=== PATIENT | female | born 1985 | race Caucasian/White ===

== ENCOUNTER → 2020-10-08 00:51 | Outpatient (CLI) | payer OTHER, SELFPAY ==
[2020-10-08 17:24] LABS: SARS-CoV-2 RNA PCR Negative
== END ==
PROVIDERS: PCP Physician Assistant; Visit Provider Surgery Plastic and Reconstructive Surgery
DX: Z01.812 Encounter for preprocedural laboratory examination (principal); Z20.822 Contact with and (suspected) exposure to COVID-19
CPT/HCPCS: C9803; U0003; U0005

== ENCOUNTER 2020-10-11 05:53 | Day surgery (SDC) | payer OTHER, SELFPAY ==
[2020-10-02 09:52] VITALS: BMI 26.9
[2020-10-11] VITALS (11 sets, daily range): BP systolic 105–119; BP diastolic 66–89; PULSE 64–116; RESP 12–18; TEMP 36.4–36.8; O2SAT 94–100; BMI 27.6
[2020-10-11] MEDS: LACTATED RINGERS 1,000 ML 30 ML IV CONT ×2 (06:39→08:25)
--- NOTE | 2020-10-11 06:53 | WPDANESEPPF ---
Anes - Initial Pre Proc Eval Procedure: Operation Date: 10/11/20 07:30 Proposed Procedures p Bilateral Breast Augmentation Mammoplasty - Kenny Luevano MD Date/Time: 10/11/20 06:53 Surgeon: Kenny Luevano MD Pre Op Diagnosis: Micromastia Patient Data Age: 35 Gender: F Height: 1.6 m Weight: 70.7 kg Last Vital Signs Temp 36.8 C 10/11/20 06:19 Pulse 76 10/11/20 06:19 Resp 15 10/11/20 06:19 BP 118/76 10/11/20 06:19 Pulse Ox 100 10/11/20 06:19 Allergies Allergy/AdvReac Type Severity Reaction Status Date / Time Sulfa (Sulfonamide Allergy Intermediate rash and Verified 10/11/20 06:02 Antibiotics) inflammation Home Medications Medication Instructions Recorded Confirmed Type bupropion HCl 300 mg 24 hr tablet, 300 mg PO QAM 07/31/20 10/11/20 History extended release etonogestrel 0.12 mg-ethinyl 1 vag ring VAGINAL ONCE 07/31/20 10/02/20 History estradiol 0.015 mg/24 hr vaginal ring carisoprodol 350 mg tablet 350 mg PO TID PRN #21 tablet 09/25/20 10/02/20 Rx docusate sodium 100 mg capsule 100 mg PO BID #21 cap 09/25/20 10/02/20 Rx ondansetron HCl 4 mg tablet 4 mg PO Q8H #14 tablet 09/25/20 10/02/20 Rx oxycodone-acetaminophen 5 mg-325 1 tablet PO Q6H PRN #15 tablet 09/25/20 10/02/20 Rx mg tablet acetaminophen [Tylenol] 325 mg PO ONCE PRN 10/02/20 10/11/20 History Patient hx anesthesia problems: none Family hx anesthesia problems: none [facility] Past Medical History Medical History (Updated 10/10/20 @ 12:14 by Carlos Wren DO) Depression Surgical History Surgical History History of Social History Social History Smoking status: Never smoker Second hand tobacco smoke exposure: No Alcohol intake: current Alcohol use details: social- 2 night a week Substance use: never Substance use type: does not use Living arrangements: with family Gender identity (if verbalized by the patient): Female Spiritual care concerns: No Anes - Eval Final PreProcedure Day of Procedure 10/11/20 06:53 Patient weight: overweight Heart: regular rate and rhythm Lungs: clear to auscultation and normal air movement Airway: Mallampati scale class II Neurological: alert and oriented Last oral intake: >/= 8 hours ASA classification: II Emergent: no Anesthetic plan: proceed Anesthesia type and monitoring: general LMA and standard monitoring Informed Consent: The patient's anesthetic plan and its attendant risks and benefits were discussed with the patient/family/POA. Questions were solicited and answers provided to the satisfaction of the patient/family/POA.
--- NOTE | 2020-10-11 06:54 | WPDHPUPDATE1 ---
History and Physical Update Update Date/Time: 10/11/20 06:54 History and Physical has been reviewed, including an updated exam of the patient. There are NO changes in the patient's condition. Risks, benefits, and alternatives have been discussed and questions answered. Patient agrees to proceed with procedure.
--- NOTE | 2020-10-11 07:00 | P.OP_ITS ---
Procedure Note - Detailed Date of Procedure 10/11/20 Pre-op Diagnosis Micromastia Post-op Diagnosis same Procedure Performed Bilateral Augmentation Mammaplasty Surgeon Kenny Luevano MD Anesthesia general Findings Bilateral [place] Bueno SoftTouch 445cc Right REF# [id number] SN [id number] Left REF# [id number] SN [id number] Description of Procedure She is here today for bilateral breast augmentation. Previously and again today the risks, benefits, alternatives were discussed in extensive detail. I wanted her to be very realistic about the risks involved as well as expectations. We discussed aftercare and what to monitor for. Made sure answered all of her qu estions to her satisfaction today and consent was obtained. Marked in the preoperative holding area with their verification. The patient was taken to the operating room placed supine on the operating table. Anesthesia was provided by anesthesiology. A surgical time-out was taken. We cleansed the skin and 1% lidocaine and 0.25% Marcaine with epinephrine was used anesthetize as a field block. She was prepped and draped in a standard sterile fashion. Tegaderm nipple Aguayo were placed. A 15 blade used to make an incision along the inframammary fold. Dissection was continued at 45 degree angle until the chest wall as identified. I incised the pectoralis major along its inferior border and completely released the inferior border leaving the medial border intact. I created a subpectoral pocket in the appropriate dimensions based on our preoperative planning for the implant. I then copiously irrigated with saline solution and verified a strict hemostasis. Next the use a triple antibiotic and Betadine containing solution to irrigate the pocket. I washed my gloves with the triple antibiotic and Betadine solution. We washed the implant immediately upon opening it with this solution and only opened it when we needed it. I used implant funnel and no-touch technique. The implant was introduced into the pocket using the funnel. Having verified positioning of the implant this was closed using 2-0 Vicryl followed by 3-0 Monocryl in a running subcuticular 4-0 Monocryl followed by tissue glue. Fluffs, Tom wrap, and surgical bra were placed. Patient was awoke and taken to PACU without difficulty. All instrument sponge counts were correct at the end of the case. Estimated Blood Loss 10 Drains No Packing No Pathology none sent Complications No immediate complications Condition stable Disposition PACU
[2020-10-11] MEDS: ceFAZolin SODIUM 2 GM/20 ML SW SYRINGE IV PUSH (07:16)
[2020-10-11] MEDS: LIDO 1%/EPINEPHRINE 1:100,000 20 ML VIAL 30 ML INFILTRATE (07:34)
[2020-10-11] MEDS: fentaNYL CITRATE INJ (*CRX) 100 MCG/2 ML VIAL 25 MCG IV PUSH (09:05)
--- NOTE | 2020-10-11 09:23 | SUR.PHASEII ---
at beside. Patient drinking sprite and saltines. Tolerating sitting up well.
[2020-10-11] MEDS: oxyCODONE HCL (*CRX) 5 MG TAB IR PO (09:41)
--- NOTE | 2020-10-11 10:09 | SUR.PHASEII ---
5MG OXYCOCODONE PO AT 0942- PT STATES PAIN IN ARMS AT A 6- 1009- PATIENT RESTING COMFORTABLY IN BED(HEAD ELEVATED) - ROOM AIR- NO COMPLAINTS AT THIS TIME
--- NOTE | 2020-10-11 10:12 | WPDANESPN ---
Anes - Prog Note Post-Op Date/Time: 10/11/20 10:12 Cardiovascular status: normal Respiratory status: normal Airway patency: baseline Mental status: baseline Post-Op hydration status: normal Vital Signs: Last Vital Signs Temp 36.4 C 10/11/20 08:16 Pulse 76 10/11/20 09:42 Resp 12 10/11/20 09:42 BP 110/71 10/11/20 09:42 Pulse Ox 97 10/11/20 09:42 Pain Score (VAS): 1 I/O: Intake & Output 10/10/20 10/11/20 10/11/20 23:59 07:59 15:59 Intake Total 0 Balance 0 Post-procedural complaints: none Patient Feedback: Patient satisfied with anesthetic care. Other Findings: Patient vital signs back to baseline. Patient denies nausea and vomiting. Patient's pain under control. Patient OK for discharge.
== END 2020-10-11 10:59 | disposition home or self-care (01) ==
PROVIDERS: PCP Physician Assistant; Visit Provider Surgery Plastic and Reconstructive Surgery
PROC: (CPT 19325; principal; 2020-10-11 07:30)
DX: N64.82 Hypoplasia of breast (principal)
CPT/HCPCS: 19325

== ENCOUNTER 2024-09-14 16:05 | Emergency (ER) | payer OTHER, SELFPAY ==
--- NOTE | ~2024-09-14 | XR_ITS ---
HISTORY: injury, laceration COMPARISON: None TECHNIQUE: 2 views of the third digit were performed. FINDINGS: No acute or subacute fracture. Joint spaces are preserved and alignment is maintained. Soft tissues are unremarkable without radiopaque foreign body or significant calcification. Age-appropriate mineralization. IMPRESSION: No acute fracture or dislocation. Reviewed, dictated and finalized at location A.
--- OUTSIDE RECORDS SUMMARY | 2024-09-14 16:08 | XMS_ITS | Data Portability ---
Author Organization [facility] UPMCSanketpraveena Austin Address [address] [place] [address] Care Team Providers Care Baker Biscuit Name Role Phone LACI LAN Primary Care Provider [phone] Assessment Encounter Date Assessment Date Assessment LastModified by Organization Details LastModified Time 02/14/2024 02/14/2024 pap smear UTD eye exam overdue dental UTD every 6 months. no colon cancer or breast cancer hx. +breast implants 2020. Not available 02/14/2024 11:31:23 Plan of Treatment Reminders Order Date Submit Date Provider Last Modified By Organization Details Last Modified Time Details Appointments ANY 15 2024 08:45A M SIDNEY Schaffer Not available Not available Not available Lab insulin, serum 2023 024 [facility], [address] [place] [address] [address], [address], 02/27/2024 19:45:48 TSH + free T4, serum 2023 024 [facility], [address] [facility], [place], [address], 02/27/2024 19:45:43 thyropero xidase Ab, serum 2023 024 [facility], 102 [facility], [facility], [place], [address], 02/27/2024 19:45:50 T3, free, serum or plasma 2023 024 [facility], 102 [facility], [facility], [place], [address], 02/27/2024 19:45:51 lipid panel, serum 2023 024 [facility], [address] [facility], [facility], [place], [address], 02/27/2024 19:45:42 CMP, serum or plasma 2023 024 [facility], [facility], [facility], [place], [address], 02/27/2024 19:45:44 CBC w/ auto diff 2023 024 [facility], [facility], [facility], [place], [address], 02/27/2024 19:45:49 vitamin B12 + folate, serum or blood 2023 024 [facility], [address] [place] [address], [facility], [place], [address], 02/27/2024 19:45:46 cortisol, am, serum 2023 024 [facility], [facility], [facility], [place], [address], 02/27/2024 19:45:41 iron + TIBC + ferritin, serum 2023 024 [facility], [facility], [facility], [place], [address], 02/27/2024 19:45:52 testoster one, total, serum 2023 024 [facility], [facility], [facility], [place], [address], 02/27/2024 19:45:53 HbA1c (hemoglob in A1c), blood 2023 024 [facility], [address] [facility], [place], [address], 02/27/2024 19:45:47 Referral None recorded. Procedures None recorded. Surgeries None recorded. Imaging None recorded. Medication Orders atomoxeti ne 60 mg capsule 2024 025 [id number], [address], [place], [place], [id number], 09/11/2024 10:51:02 atomoxeti ne 40 mg capsule 2023 025 [id number], [address], [place], [place], [id number], 09/11/2024 10:51:26 Patient TargetsNo targets recorded. Patient Instructions Encounter Date Encounter Id Patient Instructions Last Modified By Organization Details Last Modified Time 02/14/2024 [id number] A healthy lifestyle: care instructions Not available 02/14/2024 11:36:20 06/19/2024 [id number] A healthy lifestyle: care instructions Not available 06/19/2024 10:30:16 Reason for Referral None Reported. Results Created Date Observation Date Name Description Value Unit Range Abnormal Flag Note LastModifiedBy Organization Detail LastModifiedTime 02/17/2002/18/2024 CORTI GONZALES - AM cortisol - AM 11.9 ug/dL 6.2-19 .4 Not Available [facility] [address] [place] [address], [address], 02/27/2024 19:45:41 02/17/2002/18/2024 LIPID PANEL W/ CHOL/ HDL RATIO cholesterol, total 197 mg/dL 100-19 9 Not Available [facility] [address] [place] [address], [address], 02/27/2024 19:45:42 02/17/2002/18/2024 LIPID PANEL W/ CHOL/ HDL RATIO triglyceride s 66 mg/dL 0-149 Not Available [facility] [address] [place], [address], 02/27/2024 19:45:42 02/17/20 24 02/18/2024 LIPID PANEL W/ CHOL/ HDL RATIO HDL cholesterol 66 mg/dL >39 Not Available [facility] [address] [place], [address], 02/27/2024 19:45:42 02/17/2002/18/2024 LIPID PANEL W/ CHOL/ HDL RATIO VLDL cholesterol sussy 12 mg/dL 5-40 Not Available [facility] [address] [place] [address], [address], 02/27/2024 19:45:42 02/17/2002/18/2024 LIPID PANEL W/ CHOL/ HDL RATIO LDL chol calc ([facility]) 119 mg/dL 0-99 above high normal Not Available [facility] [address] [place], [address], 02/27/2024 19:45:42 02/17/20 24 02/18/2024 LIPID PANEL W/ CHOL/ HDL RATIO T. chol/HDL ratio 3.0 ratio 0.0-4. 4 T. Chol/ HDL Ratio Men Women 1/2 Avg.R isk 3.4 3.3 Avg.R isk 5.0 4.4 2X Avg.R isk 9.6 7.1 3X Avg.R isk 23.4 11.0 Not Available [facility] [address] [place] [address], [address], 02/27/2024 19:45:42 02/17/2002/18/2024 TSH+F REE T4 TSH 1.090 uIU/m L 0.450- 4.500 Not Available [facility] [address] [place], [address], 02/27/2024 19:45:43 02/17/20 24 02/18/2024 TSH+F REE T4 T4,free(dire ct) 1.06 NG/dL 0.82-1 .77 Not Available [facility] [address] [place], [address], 02/27/2024 19:45:43 02/17/20 24 02/18/2024 COMP. METAB OLIC PANEL (14) glucose 77 mg/dL 70-99 Not Available [facility] [address] [place], [address], 02/27/2024 19:45:44 02/17/20 24 02/18/2024 COMP. METAB OLIC PANEL (14) BUN 16 mg/dL 6-20 Not Available [facility] [address] [place], [address], 02/27/2024 19:45:44 02/17/20 24 02/18/2024 COMP. METAB OLIC PANEL (14) creatinine 0.85 mg/dL 0.57-1 .00 Not Available [facility] [address] [place], [address], 02/27/2024 19:45:44 02/17/20 24 02/18/2024 COMP. METAB OLIC PANEL (14) eGFR 91 mL/mi n/1.7 3 >59 Not Available [facility] [address] [place], [address], 02/27/2024 19:45:44 02/17/20 24 02/18/2024 COMP. METAB OLIC PANEL (14) BUN/creatini ne ratio 19 9-23 Not Available [facility] [address] [place], [address], 02/27/2024 19:45:44 02/17/20 24 02/18/2024 COMP. METAB OLIC PANEL (14) sodium 141 mmol/ L 134-14 4 Not Available [facility] [address] [place], [address], 02/27/2024 19:45:44 02/17/20 24 02/18/2024 COMP. METAB OLIC PANEL (14) potassium 4.3 mmol/ L 3.5-5. 2 Not Available [facility] [address] [place], [address], 02/27/2024 19:45:44 02/17/2002/18/2024 COMP. METAB OLIC PANEL (14) chloride 103 mmol/ L 96-106 Not Available [facility] [address] [place], [address], 02/27/2024 19:45:44 02/17/2002/18/2024 COMP. METAB OLIC PANEL (14) carbon dioxide, total 23 mmol/ L 20-29 Not Available [facility] [address] [place], [address], 02/27/2024 19:45:44 02/17/20 24 02/18/2024 COMP. METAB OLIC PANEL (14) calcium 9.6 mg/dL 8.7-10 .2 Not Available [facility] [address] [place], [address], 02/27/2024 19:45:44 02/17/20 24 02/18/2024 COMP. METAB OLIC PANEL (14) protein, total 7.2 g/dL 6.0-8. 5 Not Available [facility] [address] [place], [address], 02/27/2024 19:45:44 02/17/2002/18/2024 COMP. METAB OLIC PANEL (14) albumin 4.7 g/dL 3.9-4. 9 Not Available [facility] [address] [place], [address], 02/27/2024 19:45:44 02/17/20 24 02/18/2024 COMP. METAB OLIC PANEL (14) globulin, total 2.5 g/dL 1.5-4. 5 Not Available [facility] [address] [place], [address], 02/27/2024 19:45:44 02/17/20 24 02/18/2024 COMP. METAB OLIC PANEL (14) bilirubin, total 0.4 mg/dL 0.0-1. 2 Not Available [facility] [address] [place], [address], 02/27/2024 19:45:44 02/17/20 24 02/18/2024 COMP. METAB OLIC PANEL (14) alkaline phosphatase 81 IU/L 44-121 Not Available [facility] [address] [place], [address], 02/27/2024 19:45:44 02/17/20 24 02/18/2024 COMP. METAB OLIC PANEL (14) AST (SGOT) 22 IU/L 0-40 Not Available [facility] [address] [place], [address], 02/27/2024 19:45:44 02/17/20 24 02/18/2024 COMP. METAB OLIC PANEL (14) ALT (SGPT) 17 IU/L 0-32 Not Available [facility] [address] [place], [address], 02/27/2024 19:45:44 02/17/20 24 02/18/2024 VITAM IN B12 AND FOLAT E vitamin B12 837 pg/mL 232-12 45 Not Available [facility] [address] [place], [address], 02/27/2024 19:45:45 02/17/20 24 02/18/2024 VITAM IN B12 AND FOLAT E folate (folic acid), serum 10.1 NG/mL >3.0 A serum folat e carlos ntrat ion of less than 3.1 ng/mL is consi dered to repre sent clini sussy defic iency . Not Available [facility] [address] [place], [address], 02/27/2024 19:45:45 02/17/2002/18/2024 HEMOG LOBIN A1C hemoglobin A1C 5.0 % 4.8-5. 6 Predi abete s: 5.7 - 6.4 Diabe marlin: >6.4 Glyce trey contr ol for adult s with diabe marlin: <7.0 Not Available [facility] [address] [place], [address], 02/27/2024 19:45:47 02/17/2002/18/2024 INSUL IN insulin 7.2 uIU/m L 2.6-24 .9 Not Available [facility] [address] [place], [address], 02/27/2024 19:45:48 02/17/2002/18/2024 CBC WITH DIFFE RENTI AL/PL ATELE T WBC 7.6 x10e3 /uL 3.4-10 .8 Not Available [facility] [address] [place], [address], 02/27/2024 19:45:49 02/17/2002/18/2024 CBC WITH DIFFE RENTI AL/PL ATELE T RBC 4.36 x10e6 /uL 3.77-5 .28 Not Available [facility] [address] [place], [address], 02/27/2024 19:45:49 02/17/2002/18/2024 CBC WITH DIFFE RENTI AL/PL ATELE T hemoglobin 14.0 g/dL 11.1-1 5.9 Not Available [facility] [address] [place], [address], 02/27/2024 19:45:49 02/17/2002/18/2024 CBC WITH DIFFE RENTI AL/PL ATELE T hematocrit 42.3 % 34.0-4 6.6 Not Available [facility] [address] [place], [address], 02/27/2024 19:45:49 02/17/2002/18/2024 CBC WITH DIFFE RENTI AL/PL ATELE T MCV 97 fL 79-97 Not Available [facility] [address] [place], [address], 02/27/2024 19:45:49 02/17/2002/18/2024 CBC WITH DIFFE RENTI AL/PL ATELE T MCH 32.1 pg 26.6-3 3.0 Not Available [facility] [address] [place], [address], 02/27/2024 19:45:49 02/17/2002/18/2024 CBC WITH DIFFE RENTI AL/PL ATELE T MCHC 33.1 g/dL 31.5-3 5.7 Not Available [facility] [address] [place], [address], 02/27/2024 19:45:49 02/17/2002/18/2024 CBC WITH DIFFE RENTI AL/PL ATELE T RDW 11.7 % 11.7-1 5.4 Not Available [facility] [address] [place], [address], 02/27/2024 19:45:49 02/17/2002/18/2024 CBC WITH DIFFE RENTI AL/PL ATELE T platelets 353 x10e3 /uL 150-45 0 Not Available [facility] [address] [place], [address], 02/27/2024 19:45:49 02/17/2002/18/2024 CBC WITH DIFFE RENTI AL/PL ATELE T neutrophils 69 % notest ab. Not Available [facility] [address] [place], [address], 02/27/2024 19:45:49 02/17/2002/18/2024 CBC WITH DIFFE RENTI AL/PL ATELE T lymphs 23 % notest ab. Not Available [facility] [address] [place], [address], 02/27/2024 19:45:49 02/17/2002/18/2024 CBC WITH DIFFE RENTI AL/PL ATELE T monocytes 7 % notest ab. Not Available [facility] [address] [place], [address], 02/27/2024 19:45:49 02/17/2002/18/2024 CBC WITH DIFFE RENTI AL/PL ATELE T eos 0 % notest ab. Not Available [facility] [address] [place], [address], 02/27/2024 19:45:49 02/17/2002/18/2024 CBC WITH DIFFE RENTI AL/PL ATELE T basos 1 % notest ab. Not Available [facility] [address] [place], [address], 02/27/2024 19:45:49 02/17/2002/18/2024 CBC WITH DIFFE RENTI AL/PL ATELE T neutrophils (absolute) 5.3 x10e3 /uL 1.4-7. 0 Not Available [facility] [address] [place], [address], 02/27/2024 19:45:49 02/17/2002/18/2024 CBC WITH DIFFE RENTI AL/PL ATELE T lymphs (absolute) 1.7 x10e3 /uL 0.7-3. 1 Not Available [facility] [address] [place], [address], 02/27/2024 19:45:49 02/17/2002/18/2024 CBC WITH DIFFE RENTI AL/PL ATELE T monocytes(ab solute) 0.5 x10e3 /uL 0.1-0. 9 Not Available [facility] [address] [place], [address], 02/27/2024 19:45:49 02/17/2002/18/2024 CBC WITH DIFFE RENTI AL/PL ATELE T eos (absolute) 0.0 x10e3 /uL 0.0-0. 4 Not Available [facility] [address] [place], [address], 02/27/2024 19:45:49 02/17/2002/18/2024 CBC WITH DIFFE RENTI AL/PL ATELE T baso (absolute) 0.0 x10e3 /uL 0.0-0. 2 Not Available [facility] [address] [place], [address], 02/27/2024 19:45:49 02/17/20 24 02/18/2024 CBC WITH DIFFE RENTI AL/PL ATELE T immature granulocytes 0 % notest ab. Not Available [facility] [address] [place], [address], 02/27/2024 19:45:49 02/17/2002/18/2024 CBC WITH DIFFE RENTI AL/PL ATELE T immature grans (abs) 0.0 x10e3 /uL 0.0-0. 1 Not Available [facility] [address] [place], [address], 02/27/2024 19:45:49 02/17/2002/18/2024 THYRO ID ANTIB ODIES thyroid peroxidase (tpo) Ab 10 IU/mL 0-34 Not Available [facility] [address] [place], [address], 02/27/2024 19:45:50 02/17/2002/18/2024 THYRO ID ANTIB ODIES thyroglobuli n antibody <1.0 IU/mL 0.0-0. 9 Thyro globu nathaniel Antib mamta measu red by Nehemiah eden Coult er Metho dolog y It shoul d be noted that the prese nce of thyro globu nathaniel antib odies may not be patho genic nor diagn ostic , espec ially at very low level s. The assay jada actur er has found that four perce nt of indiv idual s witho ut evide nce of thyro id disea se or autoi mmuni ty will have posit ryan TgAb level s up to 4 IU/mL . Not Available [facility] [address] [place], [address], 02/27/2024 19:45:50 02/17/2002/18/2024 TRIIO DOTHY CAMILA E (T3), FREE triiodothyro nine (T3), free 2.9 pg/mL 2.0-4. 4 Not Available [facility] [address] [place], [address], 02/27/2024 19:45:51 02/17/2002/18/2024 FE+TI BC+FE R iron bind.cap.(TI BC) 309 ug/dL 250-45 0 Not Available [facility] [address] [place], [address], 02/27/2024 19:45:52 02/17/2002/18/2024 FE+TI BC+FE R UIBC 214 ug/dL 131-42 5 Not Available [facility] [address] [place], [address], 02/27/2024 19:45:52 02/17/2002/18/2024 FE+TI BC+FE R iron 95 ug/dL 27-159 Not Available [facility] [address] [facility], [place], [address], 02/27/2024 19:45:52 02/17/20 24 02/18/2024 FE+TI BC+FE R iron saturation 31 % 15-55 Not Available [facility] [address] [place], [address], 02/27/2024 19:45:52 02/17/20 24 02/18/2024 FE+TI BC+FE R ferritin 112 NG/mL 15-150 Not Available [facility] [address], [place], [address], 02/27/2024 19:45:52 02/17/20 24 02/27/2024 TESTO STERO NE, TOTAL , LC/MS testosterone , total, lc/MS 30 NG/dL This test was [place] and its perfo [facility]manc e [place] [facility] deter mined by [facility]. It has not been clear ed or appro neli by the Food and Drug Admin istra tion. Refer ence Range : Adult Femal es Preme nopau tino 10 - 55 Postm enopa usal 7 - 40 Not Available [facility] [address] [facility], [place], [address], 02/27/2024 19:45:53 06/11/19 25 06/11/2024 Lacta te [Mole s/vol ume] in Serum or Plasm a lactate [moles/volum e] in serum or plasma 0.8 text: 0.4 - 2.0 mmol/L LACTI C ACID VENOU S 0.8 0.4 - 2.0 MMOL/ L 06/11 9:56 PM [employer] [employer] Not Available Not Available 06/14/2024 23:45:24 06/11/19 25 06/11/2024 Urina lysis dipst ick W Refle x Micro scopi c panel - Urine collection method - specimen URINE CLEAN CATCH SPECI MEN TYPE URINE CLEAN CATCH 06/11 4:44 PM [employer] [facility] Not Available Not Available 06/14/2024 23:45:24 06/11/19 25 06/11/2024 Urina lysis dipst ick W Refle x Micro scopi c panel - Urine color of urine LIGHT YELLOW COLOR (U) LIGHT YELLO W 06/11 5:36 PM [employer] [facility] Not Available Not Available 06/14/2024 23:45:24 06/11/19 25 06/11/2024 Urina lysis dipst ick W Refle x Micro scopi c panel - Urine clarity of urine TURBID TRANS PAREN CY TURBI D 06/11 5:36 PM [employer] [facility] Not Available Not Available 06/14/2024 23:45:24 06/11/19 25 06/11/2024 Urina lysis dipst ick W Refle x Micro scopi c panel - Urine specific gravity of urine 1.012 low: 1.001h igh: 1.03 SPECI FIC GRAVI TY (U) 1.012 1.001 - 1.030 06/11 5:36 PM [employer] [facility] Not Available Not Available 06/14/2024 23:45:24 06/11/19 25 06/11/2024 Urina lysis dipst ick W Refle x Micro scopi c panel - Urine pH of urine 6.5 low: 5high: 9 U PH 6.5 5.0 - 9.0 06/11 5:36 PM [employer] [facility] Not Available Not Available 06/14/2024 23:45:24 06/11/19 25 06/11/2024 Urina lysis dipst ick W Refle x Micro scopi c panel - Urine leukocytes [#/volume] in urine by test strip 25 text: negati ve abnormal LEUKO CYTES (U) 25 (A) NEGAT RYAN 06/11 5:36 PM [employer] [facility] Not Available Not Available 06/14/2024 23:45:24 06/11/19 25 06/11/2024 Urina lysis dipst ick W Refle x Micro scopi c panel - Urine nitrite [presence] in urine 2+ text: negati ve abnormal NITRI MARLIN 2+ (A) NEGAT RYAN 06/11 5:36 PM [employer] [facility] Not Available Not Available 06/14/2024 23:45:24 06/11/19 25 06/11/2024 Urina lysis dipst ick W Refle x Micro scopi c panel - Urine protein [mass/volume ] in urine by test strip 10 text: <30 mg/dL PROTE IN RANDO M (U) 10 <30 MG/DL 06/11 5:36 PM [employer] [facility] Not Available Not Available 06/14/2024 23:45:24 06/11/19 25 06/11/2024 Urina lysis dipst ick W Refle x Micro scopi c panel - Urine glucose [mass/volume ] in urine NORMAL text: normal mg/dL GLUCO SE (U) CARLITOS L CARLITOS L MG/DL 06/11 5:36 PM [employer] [facility] Not Available Not Available 06/14/2024 23:45:24 06/11/19 25 06/11/2024 Urina lysis dipst ick W Refle x Micro scopi c panel - Urine ketones [mass/volume ] in urine by test strip 20 text: negati ve mg/dL abnormal KETON ES MG/DL (U) 20 (A) NEGAT RYAN MG/DL 06/11 5:36 PM [employer] [facility] Not Available Not Available 06/14/2024 23:45:24 06/11/19 25 06/11/2024 Urina lysis dipst ick W Refle x Micro scopi c panel - Urine urobilinogen [units/volum e] in urine by test strip NORMAL text: normal mg/dL UROBI LINOG EN CARLITOS L CARLITOS L MG/DL 06/11 5:[address] [facility] Not Available Not Available 06/14/2024 23:45:24 06/11/19 25 06/11/2024 Urina lysis dipst ick W Refle x Micro scopi c panel - Urine bilirubin.to magdy [mass/volume ] in urine NEGATI VE text: negati ve mg/dL BILIR UBIN (U) NEGAT RYAN NEGAT RYAN MG/DL 06/11 5:[address] [facility] Not Available Not Available 06/14/2024 23:45:24 06/11/19 25 06/11/2024 Urina lysis dipst ick W Refle x Micro scopi c panel - Urine erythrocytes [#/volume] in urine by automated test strip TRACE text: negati ve abnormal BLOOD (U) TRACE (A) NEGAT RYAN 06/11 5:[address] [facility] Not Available Not Available 06/14/2024 23:45:24 06/11/19 25 06/11/2024 Urina lysis dipst ick W Refle x Micro scopi c panel - Urine mucus [#/area] in urine sediment by microscopy low power field RARE text: /lpf MUCUS RARE /LPF 06/11 5:[address] [facility] Not Available Not Available 06/14/2024 23:45:24 06/11/19 25 06/11/2024 Urina lysis dipst ick W Refle x Micro scopi c panel - Urine leukocytes [#/area] in urine sediment by microscopy high power field 10 text: <6 /hpf high WBC/H PF 10 (H) <6 /HPF 06/11 5:[address] [facility] Not Available Not Available 06/14/2024 23:45:24 06/11/19 25 06/11/2024 Urina lysis dipst ick W Refle x Micro scopi c panel - Urine erythrocytes [#/area] in urine sediment by microscopy high power field 1 text: <6 /hpf RBC/H PF 1 <6 /HPF 02/16 /2025 5:36 PM [facility] Not Available Not Available 06/14/2024 23:45:24 06/11/19 25 06/11/2024 Urina lysis dipst ick W Refle x Micro scopi c panel - Urine bacteria [#/area] in urine sediment by microscopy high power field RARE text: none /hpf abnormal BACTE ROSEMARY (U) RARE (A) NONE /HPF 06/11 5:36 PM [employer] [facility] Not Available Not Available 06/14/2024 23:45:24 06/11/19 25 06/11/2024 Urina lysis dipst ick W Refle x Micro scopi c panel - Urine epithelial cells.squamo us [#/area] in urine sediment by microscopy high power field FEW text: /hpf SQUAM OUS EPITH ELIAL S FEW /HPF 06/11 5:36 PM [facility] Not Available Not Available 06/14/2024 23:45:24 06/11/19 25 06/11/2024 Urina lysis dipst ick W Refle x Micro scopi c panel - Urine interpretati on and review of laboratory results Abnorm al Not Available Not Available 23:45:24 06/11/19 25 06/11/2024 Proth rombi n time (PT) prothrombin time (PT) 14.2 text: 10.2 - 12.9 sec high PROTI ME 14.2 (H) 10.2 - 12.9 SEC 06/11 5:53 PM [facility] Not Available Not Available 06/14/2024 23:45:24 06/11/19 25 06/11/2024 Proth rombi n time (PT) INR in platelet poor plasma by coagulation assay 1.2 INR 1.2 06/11 5:53 PM [facility] Not Available Not Available 06/14/2024 23:45:24 06/11/19 25 06/11/2024 Proth rombi n time (PT) interpretati on and review of laboratory results Abnorm al Not Available Not Available 23:45:24 06/11/19 25 06/11/2024 Fibri n D-dim er FEU [Mass /volu me] in Plate let poor plasm a fibrin D-dimer feu [mass/volume ] in platelet poor plasma 772 NG{fe u}/mL low: 0NG{fe u}/mLh igh: 500NG{ feu}/m L critical high D-DIM ER 772 (HH) 0 - 500 ng{FE U}/mL 06/11 5:53 PM [employer] [facility] Not Available Not Available 06/14/2024 23:45:24 06/11/19 25 06/11/2024 Fibri n D-dim er FEU [Mass /volu me] in Plate let poor plasm a interpretati on and review of laboratory results Abnorm al Not Available Not Available 23:45:24 06/11/19 25 06/11/2024 Compr ehens ryan metab olic 1999 panel - Serum or Plasm a glucose [mass/volume ] in serum or plasma 89 text: 70 - 99 mg/dL GLUCO SE 89 70 - 99 MG/DL 06/11 5:11 PM [facility] Not Available Not Available 06/14/2024 23:45:24 06/11/19 25 06/11/2024 Compr ehens ryan metab olic 1999 panel - Serum or Plasm a urea nitrogen [mass/volume ] in serum or plasma 13 text: 7 - 18 mg/dL BUN 13 7 - 18 MG/DL 06/11 5:11 PM [facility] [employer] [facility] Not Available Not Available 06/14/2024 23:45:24 06/11/19 25 06/11/2024 Compr ehens ryan metab olic 2000 panel - Serum or Plasm a creatinine [mass/volume ] in serum or plasma 0.96 text: 0.55 - 1.02 mg/dL CREAT ININE S/P/B 0.96 0.55 - 1.02 MG/DL 06/11 5:11 PM [facility] Not Available Not Available 06/14/2024 23:45:24 06/11/19 25 06/11/2024 Compr ehens ryan metab olic 2000 panel - Serum or Plasm a sodium [moles/volum e] in serum or plasma 134 text: 136 - 145 mmol/L low SODIU M S/P/B 134 (L) 136 - 145 MMOL/ L 06/11 5:11 PM [facility] Not Available Not Available 06/14/2024 23:45:24 06/11/19 25 06/11/2024 Compr ehens ryan metab olic 2000 panel - Serum or Plasm a potassium [moles/volum e] in serum or plasma 3.5 text: 3.5 - 5.1 mmol/L POTAS SIUM S/P/B 3.5 3.5 - 5.1 MMOL/ L 06/11 5:11 PM [facility] Not Available Not Available 06/14/2024 23:45:24 06/11/19 25 06/11/2024 Compr ehens ryan metab olic 2000 panel - Serum or Plasm a chloride [moles/volum e] in serum or plasma 101 text: 97 - 115 mmol/L CHLOR CARL S/P/B 101 97 - 115 MMOL/ L 06/11 5:11 PM [place] [facility] Not Available Not Available 06/14/2024 23:45:24 06/11/19 25 06/11/2024 Compr ehens ryan metab olic 2000 panel - Serum or Plasm a carbon dioxide, total [moles/volum e] in serum or plasma 28.8 text: 21 - 32 mmol/L CO2 28.8 21 - 32 MMOL/ L 06/11 5:11 PM [facility] Not Available Not Available 06/14/2024 23:45:24 06/11/19 25 06/11/2024 Compr ehens ryan metab olic 2000 panel - Serum or Plasm a calcium [mass/volume ] in serum or plasma 9.7 text: 8.5 - 10.1 mg/dL CALCI UM S/P/B 9.7 8.5 - 10.1 MG/DL 06/11 5:[address] [facility] Not Available Not Available 06/14/2024 23:45:24 06/11/19 25 06/11/2024 Compr ehens ryan metab olic 1999 panel - Serum or Plasm a bilirubin.to magdy [mass/volume ] in serum or plasma 0.7 text: 0.2 - 1.2 mg/dL BILIR UBIN TOTAL S/P/B 0.7 0.2 - 1.2 MG/DL 06/11 5:[address] [facility] Not Available Not Available 06/14/2024 23:45:24 06/11/19 25 06/11/2024 Compr ehens ryan metab olic 1999 panel - Serum or Plasm a protein [mass/volume ] in serum or plasma 8.1 text: 6.4 - 8.2 g/dL TOTAL PROTE IN S/P/B 8.1 6.4 - 8.2 G/DL 06/11 5:[address] [facility] Not Available Not Available 06/14/2024 23:45:24 06/11/19 25 06/11/2024 Compr ehens ryan metab olic 2000 panel - Serum or Plasm a albumin [mass/volume ] in serum or plasma 4 text: 3.4 - 5.0 g/dL ALBUM IN S/P/B 4.0 3.4 - 5.0 G/DL 06/11 5:11 PM [facility] [employer] [facility] Not Available Not Available 06/14/2024 23:45:24 06/11/19 25 06/11/2024 Compr ehens ryan metab olic 2000 panel - Serum or Plasm a aspartate aminotransfe rase [enzymatic activity/vol ume] in serum or plasma 14 U/L low: 15U/Lh igh: 37U/L low AST 14 (L) 15 - 37 U/L 06/11 5:11 PM [facility] Not Available Not Available 06/14/2024 23:45:24 06/11/19 25 06/11/2024 Compr ehens ryan metab olic 1999 panel - Serum or Plasm a alanine aminotransfe rase [enzymatic activity/vol ume] in serum or plasma 20 U/L low: 14U/Lh igh: 55U/L ALT 20 14 - 55 U/L 06/11 5:11 PM [facility] Not Available Not Available 06/14/2024 23:45:24 06/11/19 25 06/11/2024 Compr ehens ryan metab olic 1999 panel - Serum or Plasm a alkaline phosphatase [enzymatic activity/vol ume] in serum or plasma 90 U/L low: 50U/Lh igh: 136U/L ALKAL INE PHOSP HATAS E S/P/B 90 50 - 136 U/L 06/11 5:11 PM [facility] Not Available Not Available 06/14/2024 23:45:24 06/11/19 25 06/11/2024 Compr ehens ryan metab olic 2000 panel - Serum or Plasm a anion gap in serum or plasma 4.2 text: 2 - 10 mmol/L ANION GAP 4.2 2 - 10 MMOL/ L 06/11 5:11 PM [facility] Not Available Not Available 06/14/2024 23:45:24 06/11/19 25 06/11/2024 Compr ehens ryan metab olic 2000 panel - Serum or Plasm a urea nitrogen/cre atinine [mass ratio] in serum or plasma 13.6 low: 6high: 26 BUN CREAT ININE RATIO 13.6 6 - 26 06/11 5:11 PM [facility] Not Available Not Available 06/14/2024 23:45:24 06/11/19 25 06/11/2024 Compr ehens ryan metab olic 2000 panel - Serum or Plasm a albumin/glob ulin [mass ratio] in serum or plasma 1 text: 1.0 - 2.0 ratio A/G RATIO 1.0 1.0 - 2.0 RATIO 06/11 5:11 PM [facility] [facility] Not Available Not Available 06/14/2024 23:45:24 06/11/19 25 06/11/2024 Compr ehens ryan metab olic 2000 panel - Serum or Plasm a glomerular filtration rate/1.73 sq M.predicted [volume rate/area] in serum, plasma or blood by creatinine-b ased formula (CKD-epi 2020) 79 text: >90 mL/min /1.73 M2 low GFR ESTIM ATE 79 (L) >90 ML/CO N/1.7 3 M2 06/11 5:11 PM [facility] Not Available Not Available 06/14/2024 23:45:24 06/11/19 25 06/11/2024 Compr ehens ryan metab olic 2000 panel - Serum or Plasm a interpretati on and review of laboratory results Abnorm al Not Available Not Available 23:45:24 06/11/19 25 06/11/2024 CBC W Auto Diffe renti al panel - Blood leukocytes [#/volume] in blood by automated count 14.01 text: 4.5 - 11.0 x10'3/ uL high WBC 14.01 (H) 4.5 - 11.0 x10'3 /uL 06/11 5:19 PM [facility] Not Available Not Available 06/14/2024 23:45:24 06/11/19 25 06/11/2024 CBC W Auto Diffe renti al panel - Blood erythrocytes [#/volume] in blood by automated count 4.42 text: 4.20 - 5.40 x10'6/ uL RBC 4.42 4.20 - 5.40 x10'6 /uL 06/11 5:19 PM [facility] [facility] Not Available Not Available 06/14/2024 23:45:24 06/11/19 25 06/11/2024 CBC W Auto Diffe renti al panel - Blood hemoglobin [mass/volume ] in blood 13.7 text: 12.0 - 16.0 g/dL HGB 13.7 12.0 - 16.0 G/DL 06/11 5:19 PM [facility] [facility] Not Available Not Available 06/14/2024 23:45:24 06/11/19 25 06/11/2024 CBC W Auto Diffe renti al panel - Blood hematocrit [volume fraction] of blood 42 % low: 38%hig h: 48% HCT 42.0 38.0 - 48.0 % 06/11 5:19 PM [facility] [employer] Not Available Not Available 06/14/2024 23:45:24 06/11/19 25 06/11/2024 CBC W Auto Diffe renti al panel - Blood MCV [entitic volume] 95 text: 81.0 - 99.0 fL MCV 95.0 81.0 - 99.0 FL 06/11 5:19 PM [facility] [employer] Not Available Not Available 06/14/2024 23:45:24 06/11/19 25 06/11/2024 CBC W Auto Diffe renti al panel - Blood MCH [entitic mass] 31 pg low: 27pghi gh: 31pg MCH 31.0 27.0 - 31.0 PG 06/11 5:19 PM [facility] [employer] Not Available Not Available 06/14/2024 23:45:24 06/11/19 25 06/11/2024 CBC W Auto Diffe renti al panel - Blood MCHC [mass/volume ] 32.6 text: 32.0 - 36.0 g/dL MCHC 32.6 32.0 - 36.0 G/DL 06/11 5:19 PM [facility] Not Available Not Available 06/14/2024 23:45:24 06/11/19 25 06/11/2024 CBC W Auto Diffe renti al panel - Blood erythrocyte distribution width [entitic volume] by automated count 12.3 % low: 11.5%h igh: 14.5% RDW 12.3 11.5 - 14.5 % 06/11 5:19 PM [facility] Not Available Not Available 06/14/2024 23:45:24 06/11/19 25 06/11/2024 CBC W Auto Diffe renti al panel - Blood platelets [#/volume] in blood 282 text: 130 - 400 x10'3/ uL PLT 282 130 - 400 x10'3 /uL 06/11 5:19 PM [facility] Not Available Not Available 06/14/2024 23:45:24 06/11/19 25 06/11/2024 CBC W Auto Diffe renti al panel - Blood platelet mean volume [entitic volume] in blood 9.5 text: 9.3 - 12.2 fL MPV 9.5 9.3 - 12.2 FL 06/11 5:19 PM [facility] Not Available Not Available 06/14/2024 23:45:24 06/11/19 25 06/11/2024 CBC W Auto Diffe renti al panel - Blood differential cell count method - blood AUTOMA JESSICA DIFFER ENTIAL DIFFE RENTI AL TYPE AUTOM ATED DIFFE RENTI AL 06/11 5:19 PM [facility] Not Available Not Available 06/14/2024 23:45:24 06/11/19 25 06/11/2024 CBC W Auto Diffe renti al panel - Blood neutrophils/ 100 leukocytes in blood by automated count 78.6 % NEUTR OPHIL S % 78.6 % 06/11 5:19 PM [facility] Not Available Not Available 06/14/2024 23:45:24 06/11/19 25 06/11/2024 CBC W Auto Diffe renti al panel - Blood lymphocytes/ 100 leukocytes in blood by automated count 10.6 % LYMPH OCYTE S % 10.6 % 06/11 5:19 PM [facility] Not Available Not Available 06/14/2024 23:45:24 02/16/20 25 06/11/2024 CBC W Auto Diffe renti al panel - Blood monocytes/10 0 leukocytes in blood by automated count 10.1 % MONOC YTES % 10.1 % 06/11 5:19 PM [facility] Not Available Not Available 06/14/2024 23:45:24 06/11/19 25 06/11/2024 CBC W Auto Diffe renti al panel - Blood eosinophils/ 100 leukocytes in blood by automated count 0 % EOSIN OPHIL S 0.0 % 06/11 5:19 PM [facility] [facility] Not Available Not Available 06/14/2024 23:45:24 06/11/19 25 06/11/2024 CBC W Auto Diffe renti al panel - Blood basophils/10 0 leukocytes in blood by automated count 0.3 % BASOP HILS 0.3 % 06/11 5:19 PM [facility] Not Available Not Available 06/14/2024 23:45:24 06/11/19 25 06/11/2024 CBC W Auto Diffe renti al panel - Blood immature granulocytes /100 leukocytes in blood by automated count 0.4 % IMMAT URE GRANS % 0.4 % 06/11 5:19 PM [facility] Not Available Not Available 06/14/2024 23:45:24 06/11/19 25 06/11/2024 CBC W Auto Diffe renti al panel - Blood neutrophils [#/volume] in blood 11.03 text: 1.80 - 7.70 x10'3/ uL high ABS. NEUTR OPHIL S 11.03 (H) 1.80 - 7.70 x10'3 /uL 06/11 5:19 PM [employer] [facility] Not Available Not Available 06/14/2024 23:45:24 06/11/19 25 06/11/2024 CBC W Auto Diffe renti al panel - Blood lymphocytes [#/volume] in blood 1.48 text: 1.00 - 4.80 x10'3/ uL ABS. LYMPH OCYTE S 1.48 1.00 - 4.80 x10'3 /uL 06/11 5:19 PM [facility] [facility] Not Available Not Available 06/14/2024 23:45:24 06/11/19 25 06/11/2024 CBC W Auto Diffe renti al panel - Blood monocytes [#/volume] in blood 1.41 text: 0.24 - 0.86 x10'3/ uL high ABS. MONOC YTES 1.41 (H) 0.24 - 0.86 x10'3 /uL 06/11 5:19 PM [employer] [facility] Not Available Not Available 06/14/2024 23:45:24 06/11/19 25 06/11/2024 CBC W Auto Diffe renti al panel - Blood eosinophils [#/volume] in blood 0 text: 0.04 - 0.36 x10'3/ uL low ABS. EOSIN OPHIL S 0.00 (L) 0.04 - 0.36 x10'3 /uL 06/11 5:19 PM [facility] [facility] Not Available Not Available 06/14/2024 23:45:24 06/11/19 25 06/11/2024 CBC W Auto Diffe renti al panel - Blood basophils [#/volume] in blood 0.04 text: 0.01 - 0.08 x10'3/ uL ABS. BASOP HILS 0.04 0.01 - 0.08 x10'3 /uL 06/11 5:19 PM [facility] Not Available Not Available 06/14/2024 23:45:24 06/11/19 25 06/11/2024 CBC W Auto Diffe renti al panel - Blood immature granulocytes [#/volume] in blood 0.05 text: 0.00 - 0.49 x10'3/ uL ABS. IMMAT URE GRANU LOCYT ES 0.05 0.00 - 0.49 x10'3 /uL 06/11 5:19 PM [facility] [facility] Not Available Not Available 06/14/2024 23:45:24 06/11/19 25 06/11/2024 CBC W Auto Diffe renti al panel - Blood interpretati on and review of laboratory results Abnorm al Not Available Not Available 23:45:24 06/12/19 25 06/13/2024 Bacte rosemary ident ified in Urine by Cultu re specimen source identified URINE CLEAN CATCH SPEC DESCR IPTIO N URINE CLEAN CATCH 06/12 6:17 AM [employer] [facility] Not Available Not Available 06/14/2024 23:45:25 06/12/19 25 06/13/2024 Bacte rosemary ident ified in Urine by Cultu re service comment NO SPECIA L REQUES T SPECI AL REQUE STS NO SPECI AL REQUE ST 06/12 6:17 AM [facility] Not Available Not Available 06/14/2024 23:45:25 06/12/19 25 06/13/2024 Bacte rosemary ident ified in Urine by Cultu re bacteria identified in specimen by culture POLYMI CROBIA L GROWTH CONSIS TENT WITH NORMAL GENITA L VIRGIE. SUSCEP TIBILI TIES NOT ROUTIN [facility] PERFOR MED. CULTU RE RESUL T POLYM ICROB IAL GROWT H CONSI STENT WITH CARLITOS L GENIT AL VIRGIE . SUSCE PTIBI LITIE S NOT ROUTI SANAM PERFO RMED. 06/13 8:50 AM [facility] Not Available Not Available 06/14/2024 23:45:25 06/12/19 25 06/12/2024 Compr ehens ryan metab olic 1999 panel - Serum or Plasm a glucose [mass/volume ] in serum or plasma 80 text: 70 - 99 mg/dL GLUCO SE 80 70 - 99 MG/DL 06/12 6:30 AM [facility] Not Available Not Available 06/14/2024 23:45:25 06/12/19 25 06/12/2024 Compr ehens ryan metab olic 2000 panel - Serum or Plasm a urea nitrogen [mass/volume ] in serum or plasma 11 text: 7 - 18 mg/dL BUN 11 7 - 18 MG/DL 06/12 6:30 AM [facility] Not Available Not Available 06/14/2024 23:45:25 06/12/19 25 06/12/2024 Compr ehens ryan metab olic 1999 panel - Serum or Plasm a creatinine [mass/volume ] in serum or plasma 0.72 text: 0.55 - 1.02 mg/dL CREAT ININE S/P/B 0.72 0.55 - 1.02 MG/DL 06/12 6:30 AM [facility] Not Available Not Available 06/14/2024 23:45:25 06/12/19 25 06/12/2024 Compr ehens ryan metab olic 1999 panel - Serum or Plasm a sodium [moles/volum e] in serum or plasma 138 text: 136 - 145 mmol/L SODIU M S/P/B 138 136 - 145 MMOL/ L 06/12 6:30 AM [facility] Not Available Not Available 06/14/2024 23:45:25 06/12/19 25 06/12/2024 Compr ehens ryan metab olic 2000 panel - Serum or Plasm a potassium [moles/volum e] in serum or plasma 3.4 text: 3.5 - 5.1 mmol/L low POTAS SIUM S/P/B 3.4 (L) 3.5 - 5.1 MMOL/ L 06/12 6:30 AM [facility] Not Available Not Available 06/14/2024 23:45:25 06/12/19 25 06/12/2024 Compr ehens ryan metab olic 2000 panel - Serum or Plasm a chloride [moles/volum e] in serum or plasma 108 text: 97 - 115 mmol/L CHLOR CARL S/P/B 108 97 - 115 MMOL/ L 06/12 6:30 AM [facility] Not Available Not Available 06/14/2024 23:45:25 06/12/19 25 06/12/2024 Compr ehens ryan metab olic 2000 panel - Serum or Plasm a carbon dioxide, total [moles/volum e] in serum or plasma 26.1 text: 21 - 32 mmol/L CO2 26.1 21 - 32 MMOL/ L 06/12 6:[address] [facility] Not Available Not Available 06/14/2024 23:45:25 06/12/19 25 06/12/2024 Compr ehens ryan metab olic 2000 panel - Serum or Plasm a calcium [mass/volume ] in serum or plasma 8.3 text: 8.5 - 10.1 mg/dL low CALCI UM S/P/B 8.3 (L) 8.5 - 10.1 MG/DL 06/12 6:30 AM [facility] Not Available Not Available 06/14/2024 23:45:25 06/12/19 25 06/12/2024 Compr ehens ryan metab olic 2000 panel - Serum or Plasm a bilirubin.to magdy [mass/volume ] in serum or plasma 0.5 text: 0.2 - 1.2 mg/dL BILIR UBIN TOTAL S/P/B 0.5 0.2 - 1.2 MG/DL 06/12 6:30 AM [facility] Not Available Not Available 06/14/2024 23:45:25 06/12/19 25 06/12/2024 Compr ehens ryan metab olic 2000 panel - Serum or Plasm a protein [mass/volume ] in serum or plasma 6.4 text: 6.4 - 8.2 g/dL TOTAL PROTE IN S/P/B 6.4 6.4 - 8.2 G/DL 06/12 6:30 AM [facility] Not Available Not Available 06/14/2024 23:45:25 06/12/19 25 06/12/2024 Compr ehens ryan metab olic 2000 panel - Serum or Plasm a albumin [mass/volume ] in serum or plasma 3 text: 3.4 - 5.0 g/dL low ALBUM IN S/P/B 3.0 (L) 3.4 - 5.0 G/DL 06/12 6:30 AM [facility] Not Available Not Available 06/14/2024 23:45:25 06/12/19 25 06/12/2024 Compr ehens ryan metab olic 2000 panel - Serum or Plasm a aspartate aminotransfe rase [enzymatic activity/vol ume] in serum or plasma 7 U/L low: 15U/Lh igh: 37U/L low AST 7 (L) 15 - 37 U/L 06/12 6:30 AM [facility] Not Available Not Available 06/14/2024 23:45:25 06/12/19 25 06/12/2024 Compr ehens ryan metab olic 2000 panel - Serum or Plasm a alanine aminotransfe rase [enzymatic activity/vol ume] in serum or plasma 15 U/L low: 14U/Lh igh: 55U/L ALT 15 14 - 55 U/L 06/12 6:30 AM [facility] Not Available Not Available 06/14/2024 23:45:25 06/12/19 25 06/12/2024 Compr ehens ryan metab olic 2000 panel - Serum or Plasm a alkaline phosphatase [enzymatic activity/vol ume] in serum or plasma 72 U/L low: 50U/Lh igh: 136U/L ALKAL INE PHOSP HATAS E S/P/B 72 50 - 136 U/L 06/12 6:30 AM [facility] Not Available Not Available 06/14/2024 23:45:25 06/12/19 25 06/12/2024 Compr ehens ryan metab olic 2000 panel - Serum or Plasm a anion gap in serum or plasma 3.9 text: 2 - 10 mmol/L ANION GAP 3.9 2 - 10 MMOL/ L 06/12 6:30 AM [employer] [facility] Not Available Not Available 06/14/2024 23:45:25 06/12/19 25 06/12/2024 Compr ehens ryan metab olic 1999 panel - Serum or Plasm a urea nitrogen/cre atinine [mass ratio] in serum or plasma 15.2 low: 6high: 26 BUN CREAT ININE RATIO 15.2 6 - 26 06/12 6:30 AM [facility] Not Available Not Available 06/14/2024 23:45:25 06/12/19 25 06/12/2024 Compr ehens ryan metab olic 1999 panel - Serum or Plasm a albumin/glob ulin [mass ratio] in serum or plasma 0.9 text: 1.0 - 2.0 ratio low A/G RATIO 0.9 (L) 1.0 - 2.0 RATIO 06/12 6:30 AM [facility] Not Available Not Available 06/14/2024 23:45:25 06/12/19 25 06/12/2024 Compr ehens ryan metab olic 1999 panel - Serum or Plasm a glomerular filtration rate/1.73 sq M.predicted [volume rate/area] in serum, plasma or blood by creatinine-b ased formula (CKD-epi 2020) >90 text: >90 mL/min /1.73 M2 GFR ESTIM ATE >90 >90 ML/CO N/1.7 3 M2 06/12 6:30 AM [facility] Not Available Not Available 06/14/2024 23:45:25 06/12/19 25 06/[facility] - Serum or Plasm a interpretati on and review of laboratory results Abnorm al Not Available Not Available 23:45:25 06/12/19 25 06/12/2024 CBC W Auto Diffe renti al panel - Blood leukocytes [#/volume] in blood by automated count 15.54 text: 4.5 - 11.0 x10'3/ uL high WBC 15.54 (H) 4.5 - 11.0 x10'3 /uL 06/12 6:05 AM [facility] Not Available Not Available 06/14/2024 23:45:24 06/12/19 25 06/12/2024 CBC W Auto Diffe renti al panel - Blood erythrocytes [#/volume] in blood by automated count 3.71 text: 4.20 - 5.40 x10'6/ uL low RBC 3.71 (L) 4.20 - 5.40 x10'6 /uL 06/12 6:05 AM [facility] Not Available Not Available 06/14/2024 23:45:24 06/12/19 25 06/12/2024 CBC W Auto Diffe renti al panel - Blood hemoglobin [mass/volume ] in blood 11.6 text: 12.0 - 16.0 g/dL low HGB 11.6 (L) 12.0 - 16.0 G/DL 06/12 6:05 AM [facility] Not Available Not Available 06/14/2024 23:45:24 06/12/19 25 06/12/2024 CBC W Auto Diffe renti al panel - Blood hematocrit [volume fraction] of blood 35.3 % low: 38%hig h: 48% low HCT 35.3 (L) 38.0 - 48.0 % 06/12 6:05 AM [facility] Not Available Not Available 06/14/2024 23:45:24 06/12/19 25 06/12/2024 CBC W Auto Diffe renti al panel - Blood MCV [entitic volume] 95.1 text: 81.0 - 99.0 fL MCV 95.1 81.0 - 99.0 FL 06/12 6:05 AM [facility] Not Available Not Available 06/14/2024 23:45:24 06/12/19 25 06/12/2024 CBC W Auto Diffe renti al panel - Blood MCH [entitic mass] 31.3 pg low: 27pghi gh: 31pg high MCH 31.3 (H) 27.0 - 31.0 PG 06/12 6:05 AM [facility] Not Available Not Available 06/14/2024 23:45:24 06/12/19 25 06/12/2024 CBC W Auto Diffe renti al panel - Blood MCHC [mass/volume ] 32.9 text: 32.0 - 36.0 g/dL MCHC 32.9 32.0 - 36.0 G/DL 06/12 6:05 AM [facility] Not Available Not Available 06/14/2024 23:45:24 06/12/19 25 06/12/2024 CBC W Auto Diffe renti al panel - Blood erythrocyte distribution width [entitic volume] by automated count 12.3 % low: 11.5%h igh: 14.5% RDW 12.3 11.5 - 14.5 % 06/12 6:05 AM [facility] Not Available Not Available 06/14/2024 23:45:24 06/12/19 25 06/12/2024 CBC W Auto Diffe renti al panel - Blood platelets [#/volume] in blood 239 text: 130 - 400 x10'3/ uL PLT 239 130 - 400 x10'3 /uL 06/12 6:05 AM [facility] Not Available Not Available 06/14/2024 23:45:24 06/12/19 25 06/12/2024 CBC W Auto Diffe renti al panel - Blood platelet mean volume [entitic volume] in blood 9.3 text: 9.3 - 12.2 fL MPV 9.3 9.3 - 12.2 FL 06/12 6:05 AM [facility] Not Available Not Available 06/14/2024 23:45:24 06/12/19 25 06/12/2024 CBC W Auto Diffe renti al panel - Blood differential cell count method - blood MANUAL DIFFER ENTIAL DIFFE QUINN AL TYPE MARÍA CHILDERS 06/12 6:33 AM [facility] Not Available Not Available 06/14/2024 23:45:24 06/12/19 25 06/12/2024 CBC W Auto Diffe renti al panel - Blood segmented neutrophils/ 100 leukocytes in blood by manual count 81 % SEG NEUTR OPHIL S 81 % 06/12 6:33 AM [facility] Not Available Not Available 06/14/2024 23:45:24 06/12/19 25 06/12/2024 CBC W Auto Diffe renti al panel - Blood lymphocytes/ 100 leukocytes in blood by manual count 9 % LYMPH OCYTE S 9 % 06/12 6:33 AM [facility] Not Available Not Available 06/14/2024 23:45:24 06/12/19 25 06/12/2024 CBC W Auto Diffe renti al panel - Blood monocytes/10 0 leukocytes in blood by manual count 10 % MONOC YTES 10 % 06/12 6:33 AM [facility] Not Available Not Available 06/14/2024 23:45:24 06/12/19 25 06/12/2024 CBC W Auto Diffe renti al panel - Blood neutrophils [#/volume] in blood 12.59 text: 1.80 - 7.70 x10'3/ uL high ABS. NEUTR OPHIL S 12.59 (H) 1.80 - 7.70 x10'3 /uL 06/12 6:33 AM [facility] Not Available Not Available 06/14/2024 23:45:24 06/12/19 25 06/12/2024 CBC W Auto Diffe renti al panel - Blood lymphocytes [#/volume] in blood 1.4 text: 1.00 - 4.80 x10'3/ uL ABS. LYMPH OCYTE S 1.40 1.00 - 4.80 x10'3 /uL 06/12 6:33 AM [facility] [facility] Not Available Not Available 06/14/2024 23:45:24 06/12/19 25 06/12/2024 CBC W Auto Diffe renti al panel - Blood monocytes [#/volume] in blood 1.55 text: 0.24 - 0.86 x10'3/ uL high ABS. MONOC YTES 1.55 (H) 0.24 - 0.86 x10'3 /uL 06/12 6:33 AM [facility] Not Available Not Available 06/14/2024 23:45:24 06/12/19 25 06/12/2024 CBC W Auto Diffe renti al panel - Blood erythrocytes [morphology] in blood by automated count RBC MORPHO LOGY APPEAR S NORMAL . SLIDE REVIEW ED. RBC MORPH OLOGY RBC MORPH OLOGY APPEA RS CARLITOS L. SLIDE REVIE WED. 06/12 6:33 AM [facility] Not Available Not Available 06/14/2024 23:45:24 06/12/19 25 06/12/2024 CBC W Auto Diffe renti al panel - Blood platelets [#/volume] in blood by automated count ADEQUA TE PLT EST. ADEQU ATE 06/12 6:33 AM [facility] Not Available Not Available 06/14/2024 23:45:24 06/12/19 25 06/12/2024 CBC W Auto Diffe renti al panel - Blood interpretati on and review of laboratory results Abnorm al Not Available Not Available 23:45:24 06/13/19 25 06/13/2024 Compr ehens ryan metab olic 2000 panel - Serum or Plasm a glucose [mass/volume ] in serum or plasma 85 text: 70 - 99 mg/dL GLUCO SE 85 70 - 99 MG/DL 06/13 6:37 AM [facility] Not Available Not Available 06/14/2024 23:45:25 06/13/19 25 06/13/2024 Compr ehens ryan metab olic 2000 panel - Serum or Plasm a urea nitrogen [mass/volume ] in serum or plasma 6 text: 7 - 18 mg/dL low BUN 6 (L) 7 - 18 MG/DL 06/13 6:37 AM [facility] Not Available Not Available 06/14/2024 23:45:25 06/13/19 25 06/13/2024 Compr ehens ryan metab olic 1999 panel - Serum or Plasm a creatinine [mass/volume ] in serum or plasma 0.7 text: 0.55 - 1.02 mg/dL CREAT ININE S/P/B 0.70 0.55 - 1.02 MG/DL 06/13 6:37 AM [facility] Not Available Not Available 06/14/2024 23:45:25 06/13/19 25 06/13/2024 Compr ehens ryan metab olic 2000 panel - Serum or Plasm a sodium [moles/volum e] in serum or plasma 141 text: 136 - 145 mmol/L SODIU M S/P/B 141 136 - 145 MMOL/ L 06/13 6:37 AM [facility] Not Available Not Available 06/14/2024 23:45:25 06/13/19 25 06/13/2024 Compr ehens ryan metab olic 2000 panel - Serum or Plasm a potassium [moles/volum e] in serum or plasma 3.8 text: 3.5 - 5.1 mmol/L POTAS SIUM S/P/B 3.8 3.5 - 5.1 MMOL/ L 06/13 6:37 AM [facility] Not Available Not Available 06/14/2024 23:45:25 06/13/19 25 06/13/2024 Compr ehens ryan metab olic 2000 panel - Serum or Plasm a chloride [moles/volum e] in serum or plasma 113 text: 97 - 115 mmol/L CHLOR CARL S/P/B 113 97 - 115 MMOL/ L 06/13 6:37 AM [facility] Not Available Not Available 06/14/2024 23:45:25 06/13/19 25 06/13/2024 Compr ehens ryan metab olic 2000 panel - Serum or Plasm a carbon dioxide, total [moles/volum e] in serum or plasma 25.3 text: 21 - 32 mmol/L CO2 25.3 21 - 32 MMOL/ L 06/13 6:[address] [facility] Not Available Not Available 06/14/2024 23:45:25 06/13/19 25 06/13/2024 Compr ehens ryan metab olic 2000 panel - Serum or Plasm a calcium [mass/volume ] in serum or plasma 8.3 text: 8.5 - 10.1 mg/dL low CALCI UM S/P/B 8.3 (L) 8.5 - 10.1 MG/DL 06/13 6:[address] [facility] Not Available Not Available 06/14/2024 23:45:25 06/13/19 25 06/13/2024 Compr ehens ryan metab olic 2000 panel - Serum or Plasm a bilirubin.to magdy [mass/volume ] in serum or plasma 0.1 text: 0.2 - 1.2 mg/dL low BILIR UBIN TOTAL S/P/B 0.1 (L) 0.2 - 1.2 MG/DL 06/13 6:[address] [facility] Not Available Not Available 06/14/2024 23:45:25 06/13/19 25 06/13/2024 Compr ehens ryan metab olic 2000 panel - Serum or Plasm a protein [mass/volume ] in serum or plasma 6.2 text: 6.4 - 8.2 g/dL low TOTAL PROTE IN S/P/B 6.2 (L) 6.4 - 8.2 G/DL 06/13 6:[address] [facility] Not Available Not Available 06/14/2024 23:45:25 06/13/19 25 06/13/2024 Compr ehens ryan metab olic 2000 panel - Serum or Plasm a albumin [mass/volume ] in serum or plasma 2.7 text: 3.4 - 5.0 g/dL low ALBUM IN S/P/B 2.7 (L) 3.4 - 5.0 G/DL 06/13 6:37 AM [facility] Not Available Not Available 06/14/2024 23:45:25 06/13/19 25 06/13/2024 Compr ehens ryan metab olic 1999 panel - Serum or Plasm a aspartate aminotransfe rase [enzymatic activity/vol ume] in serum or plasma 10 U/L low: 15U/Lh igh: 37U/L low AST 10 (L) 15 - 37 U/L 06/13 6:37 AM [facility] Not Available Not Available 06/14/2024 23:45:25 06/13/19 25 06/13/2024 Compr ehens ryan metab olic 2000 panel - Serum or Plasm a alanine aminotransfe rase [enzymatic activity/vol ume] in serum or plasma 14 U/L low: 14U/Lh igh: 55U/L ALT 14 14 - 55 U/L 06/13 6:37 AM [facility] Not Available Not Available 06/14/2024 23:45:25 06/13/19 25 06/13/2024 Compr ehens ryan metab olic 1999 panel - Serum or Plasm a alkaline phosphatase [enzymatic activity/vol ume] in serum or plasma 62 U/L low: 50U/Lh igh: 136U/L ALKAL INE PHOSP HATAS E S/P/B 62 50 - 136 U/L 06/13 6:37 AM [facility] Not Available Not Available 06/14/2024 23:45:25 06/13/19 25 06/13/2024 Compr ehens ryan metab olic 1999 panel - Serum or Plasm a anion gap in serum or plasma 2.7 text: 2 - 10 mmol/L ANION GAP 2.7 2 - 10 MMOL/ L 06/13 6:37 AM [facility] Not Available Not Available 06/14/2024 23:45:25 06/13/19 25 06/13/2024 Compr ehens ryan metab olic 2000 panel - Serum or Plasm a urea nitrogen/cre atinine [mass ratio] in serum or plasma 8.6 low: 6high: 26 BUN CREAT ININE RATIO 8.6 6 - 26 06/13 6:37 AM [facility] Not Available Not Available 06/14/2024 23:45:25 06/13/19 25 06/13/2024 Compr ehens ryan metab olic 1999 panel - Serum or Plasm a albumin/glob ulin [mass ratio] in serum or plasma 0.8 text: 1.0 - 2.0 ratio low A/G RATIO 0.8 (L) 1.0 - 2.0 RATIO 06/13 6:37 AM [facility] Not Available Not Available 06/14/2024 23:45:25 06/13/19 25 06/13/2024 Compr ehens ryan metab olic 1999 panel - Serum or Plasm a glomerular filtration rate/1.73 sq M.predicted [volume rate/area] in serum, plasma or blood by creatinine-b ased formula (CKD-epi 2020) >90 text: >90 mL/min /1.73 M2 GFR ESTIM ATE >90 >90 ML/CO N/1.7 3 M2 06/13 6:37 AM [facility] Not Available Not Available 06/14/2024 23:45:25 06/13/19 25 06/13/2024 Compr ehens ryan metab olic 2000 panel - Serum or Plasm a interpretati on and review of laboratory results Abnorm al Not Available Not Available 23:45:25 06/13/19 25 06/13/2024 CBC W Auto Diffe renti al panel - Blood leukocytes [#/volume] in blood by automated count 8.6 text: 4.5 - 11.0 x10'3/ uL WBC 8.60 4.5 - 11.0 x10'3 /uL 06/13 6:18 AM [facility] Not Available Not Available 06/14/2024 23:45:25 06/13/19 25 06/13/2024 CBC W Auto Diffe renti al panel - Blood erythrocytes [#/volume] in blood by automated count 3.59 text: 4.20 - 5.40 x10'6/ uL low RBC 3.59 (L) 4.20 - 5.40 x10'6 /uL 06/13 6:18 AM [facility] Not Available Not Available 06/14/2024 23:45:25 06/13/19 25 06/13/2024 CBC W Auto Diffe renti al panel - Blood hemoglobin [mass/volume ] in blood 11.2 text: 12.0 - 16.0 g/dL low HGB 11.2 (L) 12.0 - 16.0 G/DL 06/13 6:18 AM [facility] Not Available Not Available 06/14/2024 23:45:25 06/13/19 25 06/13/2024 CBC W Auto Diffe renti al panel - Blood hematocrit [volume fraction] of blood 34.8 % low: 38%hig h: 48% low HCT 34.8 (L) 38.0 - 48.0 % 06/13 6:18 AM [facility] Not Available Not Available 06/14/2024 23:45:25 06/13/19 25 06/13/2024 CBC W Auto Diffe renti al panel - Blood MCV [entitic volume] 96.9 text: 81.0 - 99.0 fL MCV 96.9 81.0 - 99.0 FL 06/13 6:18 AM [facility] Not Available Not Available 06/14/2024 23:45:25 06/13/19 25 06/13/2024 CBC W Auto Diffe renti al panel - Blood MCH [entitic mass] 31.2 pg low: 27pghi gh: 31pg high MCH 31.2 (H) 27.0 - 31.0 PG 06/13 6:18 AM [facility] Not Available Not Available 06/14/2024 23:45:25 06/13/19 25 06/13/2024 CBC W Auto Diffe renti al panel - Blood MCHC [mass/volume ] 32.2 text: 32.0 - 36.0 g/dL MCHC 32.2 32.0 - 36.0 G/DL 06/13 6:18 AM [facility] Not Available Not Available 06/14/2024 23:45:25 06/13/19 25 06/13/2024 CBC W Auto Diffe renti al panel - Blood erythrocyte distribution width [entitic volume] by automated count 12.2 % low: 11.5%h igh: 14.5% RDW 12.2 11.5 - 14.5 % 06/13 6:18 AM [facility] Not Available Not Available 06/14/2024 23:45:25 06/13/19 25 06/13/2024 CBC W Auto Diffe renti al panel - Blood platelets [#/volume] in blood 241 text: 130 - 400 x10'3/ uL PLT 241 130 - 400 x10'3 /uL 06/13 6:18 AM [facility] Not Available Not Available 06/14/2024 23:45:25 06/13/19 25 06/13/2024 CBC W Auto Diffe renti al panel - Blood platelet mean volume [entitic volume] in blood 9.3 text: 9.3 - 12.2 fL MPV 9.3 9.3 - 12.2 FL 06/13 6:18 AM [facility] Not Available Not Available 06/14/2024 23:45:25 06/13/19 25 06/13/2024 CBC W Auto Diffe renti al panel - Blood differential cell count method - blood AUTOMA JESSICA DIFFER ENTIAL DIFFE RENTI AL TYPE AUTOM ATED DIFFE RENTI AL 06/13 6:18 AM [facility] Not Available Not Available 06/14/2024 23:45:25 06/13/19 25 06/13/2024 CBC W Auto Diffe renti al panel - Blood neutrophils/ 100 leukocytes in blood by automated count 58 % NEUTR OPHIL S % 58.0 % 06/13 6:18 AM [facility] Not Available Not Available 06/14/2024 23:45:25 06/13/19 25 06/13/2024 CBC W Auto Diffe renti al panel - Blood lymphocytes/ 100 leukocytes in blood by automated count 23.7 % LYMPH OCYTE S % 23.7 % 06/13 6:18 AM [facility] Not Available Not Available 06/14/2024 23:45:25 06/13/19 25 06/13/2024 CBC W Auto Diffe renti al panel - Blood monocytes/10 0 leukocytes in blood by automated count 16.7 % MONOC YTES % 16.7 % 06/13 6:18 AM [facility] Not Available Not Available 06/14/2024 23:45:25 06/13/19 25 06/13/2024 CBC W Auto Diffe renti al panel - Blood eosinophils/ 100 leukocytes in blood by automated count 0.7 % EOSIN OPHIL S 0.7 % 06/13 6:18 AM [facility] Not Available Not Available 06/14/2024 23:45:25 06/13/19 25 06/13/2024 CBC W Auto Diffe renti al panel - Blood basophils/10 0 leukocytes in blood by automated count 0.6 % BASOP HILS 0.6 % 06/13 6:18 AM [facility] Not Available Not Available 06/14/2024 23:45:25 06/13/19 25 06/13/2024 CBC W Auto Diffe renti al panel - Blood immature granulocytes /100 leukocytes in blood by automated count 0.3 % IMMAT URE GRANS % 0.3 % 06/13 6:18 AM [facility] Not Available Not Available 06/14/2024 23:45:25 06/13/19 25 06/13/2024 CBC W Auto Diffe renti al panel - Blood neutrophils [#/volume] in blood 4.98 text: 1.80 - 7.70 x10'3/ uL ABS. NEUTR OPHIL S 4.98 1.80 - 7.70 x10'3 /uL 06/13 6:18 AM [facility] Not Available Not Available 06/14/2024 23:45:25 06/13/19 25 06/13/2024 CBC W Auto Diffe renti al panel - Blood lymphocytes [#/volume] in blood 2.04 text: 1.00 - 4.80 x10'3/ uL ABS. LYMPH OCYTE S 2.04 1.00 - 4.80 x10'3 /uL 06/13 6:18 AM [facility] Not Available Not Available 06/14/2024 23:45:25 06/13/19 25 06/13/2024 CBC W Auto Diffe renti al panel - Blood monocytes [#/volume] in blood 1.44 text: 0.24 - 0.86 x10'3/ uL high ABS. MONOC YTES 1.44 (H) 0.24 - 0.86 x10'3 /uL 06/13 6:18 AM [facility] Not Available Not Available 06/14/2024 23:45:25 06/13/19 25 06/13/2024 CBC W Auto Diffe renti al panel - Blood eosinophils [#/volume] in blood 0.06 text: 0.04 - 0.36 x10'3/ uL ABS. EOSIN OPHIL S 0.06 0.04 - 0.36 x10'3 /uL 06/13 6:18 AM [facility] Not Available Not Available 06/14/2024 23:45:25 06/13/19 25 06/13/2024 CBC W Auto Diffe renti al panel - Blood basophils [#/volume] in blood 0.05 text: 0.01 - 0.08 x10'3/ uL ABS. BASOP HILS 0.05 0.01 - 0.08 x10'3 /uL 06/13 6:18 AM [facility] Not Available Not Available 06/14/2024 23:45:25 06/13/19 25 06/13/2024 CBC W Auto Diffe renti al panel - Blood immature granulocytes [#/volume] in blood 0.03 text: 0.00 - 0.49 x10'3/ uL ABS. IMMAT URE GRANU LOCYT ES 0.03 0.00 - 0.49 x10'3 /uL 06/13 6:18 AM [facility] Not Available Not Available 06/14/2024 23:45:25 06/13/19 25 06/13/2024 CBC W Auto Diffe renti al panel - Blood interpretati on and review of laboratory results Abnorm al Not Available Not Available 23:45:25 06/13/19 25 06/13/2024 Phosp hate [Mass /volu me] in Serum or Plasm a phosphate [mass/volume ] in serum or plasma 2.7 text: 2.5 - 4.9 mg/dL PHOSP HORUS 2.7 2.5 - 4.9 MG/DL 06/13 6:37 AM [facility] Not Available Not Available 06/14/2024 23:45:25 06/13/19 25 06/13/2024 Magne sium [Mass /volu me] in Serum or Plasm a magnesium [mass/volume ] in serum or plasma 2 text: 1.8 - 2.4 mg/dL MAGNE SIUM 2.0 1.8 - 2.4 MG/DL 06/13 6:37 AM [facility] Not Available Not Available 06/14/2024 23:45:25 09/03/19 25 09/02/2024 SARS- CoV+S ARS-C oV-2 (COVI D-19) Ag [Pres ence] in Respi rator y syste m speci men by Rapid immun oassa y influenza A Ag, POC Negati ve text: negati ve Influ jarocho A Ag, POC Negat ryan Negat ryan [facility] Not Available Not Available 09/11/2024 10:39:16 09/03/19 25 09/02/2024 SARS- CoV+S ARS-C oV-2 (COVI D-19) Ag [Pres ence] in Respi rator y syste m speci men by Rapid immun oassa y influenza B Ag, POC Negati ve text: negati ve Influ jarocho B Ag, POC Negat ryan Negat ryan [facility] Not Available Not Available 09/11/2024 10:39:16 09/03/19 25 09/02/2024 SARS- CoV+S ARS-C oV-2 (COVI D-19) Ag [Pres ence] in Respi rator y syste m speci men by Rapid immun oassa y covid-19 Ag POC Presum ptive Negati ve text: presum ptive negati ve, invali d COVID -19 Ag POC Presu mptiv e Negat ryan Presu mptiv e Negat ryan, Inval id [facility] Not Available Not Available 09/11/2024 10:39:16 09/03/19 25 09/02/2024 SARS- CoV+S ARS-C oV-2 (COVI D-19) Ag [Pres ence] in Respi rator y syste m speci men by Rapid immun oassa y interpretati on and review of laboratory results Normal Not Available Not Available 08/24 10:39:16 Result Notes None recorded. Problems Name Problem SNOMED Code Status Onset Date Resolution Date Notes Provider Name and Address Organization Details Recorded Time Psoriatic arthritis 647869039 Active 2023 SIDNEY Schaffer Attn: Sofia g,[address] [facility], [place], [address], [place] - [facility] 4 11:20:38 Failure to lose weight 02802419 Active 2023 SIDNEY Schaffer Attn: Sofia g,[address] [facility], [place], [address], [place] 4 11:20:40 Obesity 597509340 Active 2023 SIDNEY Schaffer Attn: Accountin g,[address] [facility], [place], [address], [place] 4 11:29:26 Poor focus 603903867 Active 2023 SIDNEY Schaffer Attn: Accountjennifer g,[address] [facility], [place], [address], [place] 4 11:36:13 Fatigue 64146240 Active 2023 SIDNEY Schaffer Attn: Accountin g,[address] [facility], [place], [address], [place] 4 13:00:49 Positive screening for depression on PHQ-9 (Patient Health Questionnai re 9) [id number] 00 Active 2023 SIDNEY Schaffer Attn: Accountin g,[address] [place], [address], [place] 4 13:01:30 Body mass index 25-29 - overweight 288770134 Active 2024 Jo Murphy [place] null, [place] 5 10:17:34 Overweight 577188345 Active 2024 SIDNEY Schaffer Attn: Accountin g,[address] [place], [address], [place] 5 11:04:10 Long-term drug therapy Active 2024 SIDNEY Schaffer Attn: Accountin g,[address] [place], [address] 5 11:04:16 Problem Notes None recorded. Procedures Surgical History Date Name Laterality Status Provider Name and Address Organization Details Recorded Time 1 Breast Surgery completed Martha Hair [place] - [place] 02/14/2024 11:42:30 7 section completed Martha Hair MA [facility] 02/14/2024 11:42:45 4 section completed Martha Hair MA [facility] 02/14/2024 11:42:41 Imaging Results None recorded. Procedure Notes None recorded. Medical Equipment None Reported. Allergies Allergen ID Allergen Name Allergen Category Reaction Reaction Severity Criticality Documentation Date Start Date Code Code System Note Provider Name and Address Organization Details Recorded Time 318892 Substance with sulfonami de structure and antibacte rial mechanism of action (substanc e) medicatio n Not available Not available Not available 02/14/2024 43916 8003 SNOMED BRENT [place], [place] - [place] 11:12:54 Medications Name Sig Start Date Stop Date Status Note LastModified by Organization Details LastModified Time azithromy sarai 250 mg tablet TAKE 2 TABLETS BY MOUTH FOR 1 DAY THEN TAKE 1 TABLET BY MOUTH DAILY FOR 4 DAYS 09/11 completed Not Available Not Available Not Available metronida zole 0.75 % (37.5 mg/5 gram) vaginal gel INSERT ONE APPLICAT ORFUL VAGINALL Y AT BEDTIME FOR 5 NIGHTS 02/13 completed Not Available Not Available Not Available amoxicill in 875 mg tablet TAKE 1 TABLET BY MOUTH EVERY 12 HOURS 02/13 completed Not Available Not Available Not Available albuterol sulfate HFA 90 mcg/actua tion aerosol inhaler INHALE 2 PUFFS BY MOUTH EVERY 6 HOURS NEEDED FOR WHEEZING OR SHORTNES S OF BREATH active Not Available Not Available No t Available progester one micronize d 100 mg capsule Take 1 capsule every day by oral route as needed for 12 days. active 225 mg- Not Available Not Available No t Available atomoxeti ne 40 mg capsule Take 1 capsule every day by oral route for 30 days. 09/11 completed Not Available Not Available Not Available atomoxeti ne 60 mg capsule Take 1 capsule every day by oral route. 2024 active Not Available Not Available Not Avai lable testoster one active injectio n Not Available Not Available Not Available [employer]alt[employer] active Not Available Not Available Not Available Vitals Date Recorded Body weight Body mass index (BMI) Body height Heart rate Oxygen saturation Oxygen saturation in Arterial blood by Pulse oximetry Systolic blood pressure Diastolic blood pressure Provider Name and Address Organization Details Last Updated DateTime 4 53645.3 g 30.3 kg/m2 160.02 cm 78 /min 98 % 98 % 110 mm[Hg] 76 mm[Hg] Bev Taylor MA [facility] 4 11:12:29 Date Recorded Respiratory rate Systolic blood pressure Diastolic blood pressure Provider Name and Address Organization Details Last Updated DateTime 02/14/2024 18 /min 124 mm[Hg] 80 mm[Hg] SIDNEY Schaffer Attn: Accounting, [address] [place], [address], [facility] 02/14/2024 11:28:13 Date Recorded Body height Body mass index (BMI) Body weight Oxygen saturation Oxygen saturation in Arterial blood by Pulse oximetry Respiratory rate Heart rate Systolic blood pressure Diastolic blood pressure Provider Name and Address Organization Details Last Updated DateTime 5 160.02 cm 29.2 kg/m2 09056.7 4 g 100 % 100 % 18 /min 67 /min 118 mm[Hg] 82 mm[Hg] Jo Murphy MA [facility] 5 10:18:59 Date Recorded Systolic blood pressure Diastolic blood pressure Provider Name and Address Organization Details Last Updated DateTime 06/19/2024 110 mm[Hg] 80 mm[Hg] SIDNEY Schaffer Attn: Accounting,[address] [place], [address], [facility] 06/19/2024 10:28:27 Date Recorded Body height Body mass index (BMI) Body weight Respiratory rate Oxygen saturation Oxygen saturation in Arterial blood by Pulse oximetry Heart rate Systolic blood pressure Diastolic blood pressure Provider Name and Address Organization Details Last Updated DateTime 5 160.02 cm 29.8 kg/m2 59463.5 2 g 18 /min 99 % 99 % 73 /min 116 mm[Hg] 82 mm[Hg] Jo Murphy MA [facility] 5 10:53:34 Date Recorded Systolic blood pressure Diastolic blood pressure Provider Name and Address Organization Details Last Updated DateTime 09/11/2024 110 mm[Hg] 80 mm[Hg] SIDNEY Schaffer Attn: Accounting,[address] [place], [address], [place] 09/11/2024 11:08:56 Social History Question Answer Notes LastModified by Organizat ion Details LastModified Time Tobacco Smoking Status Never Smoker Martha HairBRENT, [place] - [place] 02/14/2024 11:43:11 Do You Have An Advance Directive? Yes Information n ot available 09/11/2024 Are You Blind Or Do You Have Difficulty Seeing? No Information n ot available 02/14/2024 What Is Your Level Of Caffeine Consumption? None Information not available 02/14/2024 In The 14 Days Before Symptom Onset, Have You Had Close Contact With A Laboratory-confirm ed COVID-19 While That Case Was Ill? No Information n ot available 02/14/2024 In The 14 Days Before Symptom Onset, Have You Had Close Contact With A Person Who Is Under Investigation For COVID-19 While That Person Was Ill? No Information not available 02/14/2024 Have You Been To An Area Known To Be High Risk For COVID-19? No Information not available 02/14/2024 Are You Deaf Or Do You Have Serious Difficulty Hearing? No Information not available 02/14/2024 What Type Of Diet Are You Following? REGULAR Information n ot available 02/14/2024 Are There Any Guns Present In Your Home? No Information not available 02/14/2024 What Was The Date Of Your Most Recent Tobacco Screening? 09/11/2024 Information not available 09/11/2024 What Is Your Relationship Status? Information not available 02/14/2024 Do You Use Your Seat Belt Or Car Seat Routinely? Yes Information not available 02/14/2024 Do You Have Smoke And Carbon Monoxide Detectors In Your Home? Yes Information not available 02/14/2024 Do You Use Sunscreen Routinely? Yes Information not available 02/14/2024 Has Tobacco Cessation Counseling Been Provided? No Information not available 02/14/2024 Sex: Female Functional Status Question Answer Note LastModified by Organizat ion Details LastModified Time Do you use any illicit or recreational drugs? No Information not available 02/14/2024 Do you or have you ever used any other forms of tobacco or nicotine? No Information not available 02/14/2024 What is your level of alcohol consumption? Moderate Information not available 02/14/2024 Are you currently employed? Yes Information not available 02/14/2024 Are you able to care for yourself? Yes Information not available 02/14/2024 What is your occupation? [employer] Information not available 02/14/2024 What is your exercise level? None Information not available 02/14/2024 Mental Status Question Answer Note LastModified by Organization D etails LastModified Time Do you feel stressed (tense, restless, nervous, or anxious, or unable to sleep at night)? [id number] Information not available 02/14/2024 Family History Relationship Description Onset Age of this Age Resolved Age Notes LastModified by Organization Details LastModified Time Mother Depressive disorder [email or web address] Not available 2023 11:44:59 Mother Hypercholest erolemia mebyma Not available 2023 11:45:09 Father Hypercholest erolemia mebyma Not available 2023 11:45:09 Medical History Condition Response Anxiety Disorder Y Skin Problems Y Depression Y Gynecological History Statement/Question Response Menses Monthly Y Current Control Method None Flow Moderate Obstetrics History GPAL:G 2 P 2 0 0 2 Type Value Full Term 2 Induced 0 Spontaneous 0 Premature 0 Living 2 Total 2 Immunizations Vaccine Type Date Status Note Provider Nam e and Address Organization Details Recorded Time Rho(D)-IG 09/08/2016 completed [place] - [facility] 06/19/2024 10:16:55 Influenza, split virus, quadrivalent, PF 04/10/2016 completed [place] [facility] 06/19/2024 10:16:55 Past Encounters Encounter ID Performer Location Encounter Start Date Encounter Closed Date Diagnosis/Indication Diagnosis SNOMED-CT Code Diagnosis ICD10 Code Diagnosis Note [id number] Michael Sahu MD [facility] [place] [facility] [address] [place] [address] 02/14/2024 11:00:22 02/14/2024 11:48:09 Adult health examination 250174358 Z00.00 Annual wellness exam completed with fasting labs ordered for baseline evaluation from primary care perspectiv e. Cholesterol screening 27 3891857 Z13.220 Diabetes m ellitus screening 051329477 Z13.1 Thyroid di sorder screening 574746808 Z13.29 Failure to lose weight 37939794 R63.8 Fasting insulin level ordered Psoriatic arthritis 1563 83364 L40.50 on Taltz Fatigue 96705375 R53.83 Extensive labs ordered for fatigue. Body mass index 30+ - obesity 053750967 Z68.30 bmi 30.3 Obesity 614241204 E66.9 pt is already exercising routinely and calorie 6355-1246 daily. has nutrition personal coach. Poor focus 285842298 H52 .7 Trial of generic Strattera 40 mg daily for significan t focus issues that she feels like is the route of a little bit of anxiety that develops at times. Positive s creening for depression on PHQ-9 (Patient Health Questionnaire 9) 1669651925 24751 Z13.31 Patient scored a 16 on her screening today which a lot of this is related to fatigue and focus issues which have been addressed. [id number] Michael Sahu MD [facility] [employer] [address] [place] [address] 06/19/2024 09:55:37 06/19/2024 10:39:25 Body mass index 25-29 - overweight 386910444 Z68.29 BMI is 29.2 Overweight 608093796 E66 .3 Healed pyelonephritis 12 0651487 Z87.448 Patient is improved she has completed her oral antibiotic course. Encourage patient to stay hydrated and let us know the 1st signs of any lower urinary tract symptoms. Poor focus 416246133 H52 .7 Boost atomoxetin e 60 mg daily for improved management of her focus difficulti es Long-term drug therapy 744690709 Z79.332 [id number] Michael Sahu MD [facility] [employer] [address] [place] [address] 09/11/2024 10:37:50 09/11/2024 11:55:38 Body mass index 25-29 - overweight 110333027 Z68.29 BMI is 29.8 Overweight 887323824 E66 .3 BMI 29.8 Poor concentration 14127 005 R41.840 Health Concerns Section Related Observation LastModified by Organization Detai ls LastModified Time None Recorded Concern Status LastModified by Organization Details LastModified Time None Recorded Advance Directives Directive Y: Payers Encounter Date Sequence Insurance Name Policy Number Policy Egan Covered Member ID Egan Member ID Guarantor Name 02/14/2024 1 [facility] [id number] Steven Gonzales [id number] Rupa Gonzales 06/19/2024 1 [facility] [id number] Steven Gonzales [id number] Rupa Gonzales Notes Date Note Type Note Provider Name and Address Organization Details Recorded Time 02/14/2024 text/html Patient is here to reestablish with provider. She had questions if provider manages any type of hormone replacement therapy. She was [facility] locally and was on compounded thyroid was well as testosterone cream and progesterone and it was very costly. She was interested if our office would manage that. She is having much difficulty losing weight despite controlled calorie diet and routine exercise. SIDNEY Schaffer Attn: [address] [place], [address], [facility] 02/14/2024 13:01:34 06/19/2024 text/html Lower Urinary Tr act Symptoms (LUTS)Reported bypatient.Notes:Maureen ent is following up from the hospital she had pyelonephritis and was admitted to the hospital. She is feeling back to her baseline with no acute complaints. No fevers chills no nausea vomiting no dysuria. Patient is also having some focus issues and was placed on atomoxetine at the last appointment in the fall. She has difficulty completing tasks, difficulty multitasking. She has had this for several years but it seems to be much worse now. It is affecting her daily activities inability to be effective with her work and house management. She is interested in boosting the dose. She has noticed some subtle improvements but feels that higher dosing as necessary. SIDNEY Schaffer Attn: [address]ing[address] [place], [address], [facility] 06/27/2024 11:05:09 OBGyn Episode No OBEpisode recorded.
--- OUTSIDE RECORDS SUMMARY | 2024-09-14 16:08 | XMS_ITS | Clinical Summary ---
Author Organization [facility] Address [address] [place] [address] Care Team Providers Care Base Remover Name Role Phone Tamiko Soni Primary Care Pr ovider Allergies Active Allergy Reactions Criticality Noted Date Comments Sulfa (Sulfonamide Antibiotics) Swelling Medium 11/2018 Medications buPROPion XL (WELLBUTRIN XL) 300 mg 24 hr tablet Take 300 mg by mouth daily Active simethicone (MYLICON) 80 mg chewable tablet Take 1 tablet (80 mg total) by mouth every 6 (six) hours as needed for flatulence 30 tablet 9 Active Additional Information Patient not taking.Reported on 09/02/2024 ixekizumab (Taltz Autoinjector) auto-injector Active metroNIDAZOLE (METROGEL) 0.75 % (37.5mg/5 gram) vaginal gel INSERT ONE APPLICATORFUL VAGINALLY AT BEDTIME FOR 5 NIGHTS Active atomoxetine (STRATTERA) 60 mg capsule Take 1 capsule (60 mg total) by mouth daily 5 Active progesterone (PROMETRIUM) 200 mg capsule Take 1 capsule (200 mg total) by mouth daily Active testosterone cypionate (DEPO-TESTOTERO NE) 200 mg/mL injection 1 mL (200 mg total) once a week 0 5 Active albuterol HFA (PROVENTIL HFA,VENTOLIN HFA,PROAIR HFA) 90 mcg/actuation inhalerIndicati ons:Lower respiratory infection (e.g., bronchitis, pneumonia, pneumonitis, pulmonitis) Inhale 2 puffs every 6 (six) hours as needed for wheezing or shortness of breath 1 each 5 Active azithromycin (ZITHROMAX) 250 mg tabletIndicatio ns:Lower respiratory infection (e.g., bronchitis, pneumonia, pneumonitis, pulmonitis) Take 2 tablets the first day, then 1 tablet daily for 4 days. 6 tablet 5 Active benzonatate (TESSALON) 200 mg capsuleIndicati ons:Lower respiratory infection (e.g., bronchitis, pneumonia, pneumonitis, pulmonitis) Take 1 capsule (200 mg total) by mouth 3 (three) times a day as needed for cough 30 capsule 5 Active Active Problems Problem Noted Date Diagnosed Date Moderate episode of recurrent major depressive d isorder 04/17/2021 Vitamin D deficiency 04/17/2021 Abdominal pain 03/02/2019 Overview (12/02/2023): Unspecified abdominal pain;Recorded Elsewhere: No Location: [facility] Source: EHR Chronic: N Practice ID: [id number] Billable Time: 02:15:00 PM Nausea 03/02/2019 Overview (12/02/2023): Nausea w/o vomiting;Recorded Elsewhere: No Location: [facility] Source: EHR Chronic: N Practice ID: [id number] Billable Time: 02:15:00 PM Pelvic and perineal pain 11/01/2018 Overview (12/02/2023): Pelvic pain;Recorded Elsewhere: No Location: [facility] Source: EHR Chronic: N Practice ID: [id number] Billable Time: 01:00:00 PM Acute vaginitis 10/01/2017 Overview (12/02/2023): Acute vaginitis;Recorded Elsewhere: No Location: [facility] Source: EHR Chronic: N Practice ID: [id number] Billable Time: 01:00:00 PM Abnormal uterine bleeding 05/26/2017 Overview (12/02/2023): Other specified abnormal uterine and vaginal bleeding;Recorded Elsewhere: No Location: [facility] Source: EHR Chronic: N Practice ID: [id number] Billable Time: 01:00:00 PM Reduced libido 03/31/2017 Overview (12/02/2023): Decreased libido;Recorded Elsewhere: No Location: [facility] Source: EHR Chronic: N Practice ID: [id number] Billable Time: 11:00:00 AM Dysuria 09/16/2016 Overview (12/02/2023): Dysuria;Recorded Elsewhere: No Location: [facility] Source: EHR Chronic: N Practice ID: [id number] Billable Time: 01:45:00 PM Failure of cervical dilation 09/08/2016 Overview (12/02/2023): Primary inadequate contractions;Practice ID: 0001 Uterine scar from previous surgery affecting pre gnancy 09/08/2016 Overview (12/02/2023): Matern care for low transverse scar from prev del;Practice ID: 0001 premature rupture of membranes 7 Overview (12/02/2023): Pretrm louie ROM, unsp time betw rupt and onset labr, 2nd tri;Practice ID: 0001 Secondary amenorrhea 02/06/2016 Overview (12/02/2023): Secondary amenorrhea;Practice ID: 0001 Amenorrhea;Recorded Elsewhere: No Location: [facility] Source: EHR Chronic: N Practice ID: [id number] Billable Time: 08:30:00 AM Obesity 08/31/2014 Overview (12/02/2023): Obesity;Recorded Elsewhere: No Location: [facility] Source: EHR Chronic: N Practice ID: [id number] Billable Time: 09:30:00 AM Alopecia 10/13/2013 Overview (12/02/2023): Alopecia, unspecified;Recorded Elsewhere: No Location: [facility] Source: EHR Chronic: N Practice ID: [id number] Billable Time: 10:30:00 AM Anxiety 10/13/2013 Overview (12/02/2023): Anxiety;Recorded Elsewhere: No Location: [facility] Source: EHR Chronic: N Practice ID: [id number] Billable Time: 10:30:00 AM Irregular periods 10/13/2013 Overview (12/02/2023): Irregular menstrual cycle;Recorded Elsewhere: No Location: [facility] Source: EHR Chronic: N Practice ID: [id number] Billable Time: 10:00:00 AM Adjustment disorder with depressed mood 07/11/19 14 Overview (12/02/2023): Adjustment disorder with depressed mood;Recorded Elsewhere: No Location: [facility] Source: EHR Chronic: Y Practice ID: [id number] Billable Time: 10:00:00 AM Failed medical induction of labor 06/07/2013 Overview (12/02/2023): Failed medical or unspecified induction of labor, antepartum;Practice ID: 0001 Right upper quadrant pain 05/18/2013 Overview (12/02/2023): Abdominal pain, right upper quadrant;Recorded Elsewhere: No Location: [facility] Source: EHR Chronic: N Practice ID: [id number] Billable Time: 03:15:00 PM Intrauterine growth restrict ion (IUGR) affecting care of mother 03/19/2013 Overview (12/02/2023): Poor growth, affecting management of mother, antepartum condition or complication;Recorded Elsewhere: No Location: [facility] Source: EHR Chronic: N Practice ID: [id number] Billable Time: 02:00:00 PM Congenital malformation 01/16/2013 Overview (12/02/2023): screening for malformation using ultrasonics;Recorded Elsewhere: No Location: [facility] Source: EHR Chronic: N Practice ID: [id number] Billable Time: 09:30:00 AM Uterine size-date discrepancy 10/31/2012 Overview (12/02/2023): UTERINE SIZE HECTOR-ANTEPAR;Recorded Elsewhere: No Location: [facility] Source: EHR Chronic: N Practice ID: [id number] Billable Time: 03:45:00 PM Depressive disorder 01/05/2011 Overview (12/02/2023): Depression;Recorded Elsewhere: No Location: [facility] Source: EHR Chronic: N Practice ID: [id number] Billable Time: 10:30:00 AM Generalized anxiety disorder 01/05/2011 Overview (12/02/2023): Generalized anxiety disorder;Recorded Elsewhere: No Location: [facility] Source: EHR Chronic: N Practice ID: [id number] Billable Time: 10:30:00 AM Encounters Date Type Department Care Team Description 09/03/2024 Results Follow-Up [facility] at [address] [address] Stephanie Kaplan NP Bordetella pertussis/Bordetella parapertussis PCR Nasopharyngeal, Throat culture Throat 09/02/2024 11:59 PM CDT Hospital Encounter [facility] Emergency Department [address] [place] [id number] Discharge Disposition: Discharge to home or self care 09/02/2024 7:30 PM CDT - 09/02/2024 11:59 PM CDT Hospital Encounter [address] [address] Lower respiratory infection (e.g., bronchitis, pneumonia, pneumonitis, pulmonitis) Discharge Disposition: Discharge to home or self care 09/02/2024 7:00 PM CDT Office Visit [facility] at [address] [address] Stephanie Kaplan NP Lower respiratory infection (e.g., bronchitis, pneumonia, pneumonitis, pulmonitis) (Primary Dx) from Last 3 Months Immunizations Immunization Administration Dates Next Due Influenza, Quadrivalent, Spl it, Preservative Free, Intramuscular 04/10/2016 Rho (D) Immune Globulin, IV or IM 09/08/2016 Surgical History Surgery Date Site/Laterality Comments SECTION BREAST SURGERY 2020 Medical History Medical History Date Comments Anxiety Depression Social History Tobacco Use Types Packs/Day Years Used Date Smoking Tobacco: Never Cigarettes Smokeless Tobacco: Never Tobacco Cessation:Counseling Given: Not Answered Alcohol Use Standard Drinks/Week Comments Yes 0 (1 standard drink = 0.6 oz pur e alcohol) socially Comments No Sex and Gender Information Value Date Recorded Sex Assigned at Not on file 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 Gender Identity Not on file Sexual Orientation Not on file Obstetrics History Last Filed Vital Signs Vital Sign Reading Time Taken Comments Blood Pressure 137/85 09/02/2024 7:01 PM CDT Pulse 88 09/02/2024 7:01 PM CDT Temperature 37.2 C (99 F) 09/02/2024 7:01 PM CDT Respiratory Rate 18 09/02/2024 7:01 PM CDT Oxygen Saturation 99% 09/02/2024 7:01 PM CDT Inhaled Oxygen Concentration - - Weight 73.6 kg (162 lb 3.2 oz) 09/02/2024 7:01 P M CDT Height 160 cm (5' 2.99 ) 09/02/2024 7:01 PM CDT Body Mass Index 28.74 09/02/2024 7:01 PM CDT Plan of Treatment Health Maintenance Due Date Last Done Comments Cervical Cancer Screening 1987 Depression Screening 1987 Hepatitis C Screening 1987 DTaP/Tdap/Td Vaccine (1 - Tdap) 09/08/1998 Varicella Vaccines (1 of 2 - 13+ 2-dose series) 09/08/2000 Hepatitis B Screening 09/08/2005 Regular Well Visit/Exam 18-64 09/08/2005 Influenza Vaccine (Season Ended) 2024 04/10/20 16 HPV Vaccines Aged Out No longer eligi ble based on patient's age to complete this topic Pneumococcal vaccine <65 Aged Out No longer eligible based on patient's age to complete this topic Procedures Procedure Name Priority Date/Time Associated Diagnosis Comments BORDETELLA PERTUSSIS / PARAPERTUSSIS Routine 09/02/2024 7:48 PM CDT Lower respiratory infection (e.g., bronchitis, pneumonia, pneumonitis, pulmonitis) THROAT CULTURE Routine 09/02/2024 7:30 PM CDT Lower respiratory infection (e.g., bronchitis, pneumonia, pneumonitis, pulmonitis) POC INFLUENZA A/B, COVID-19 ANTIGEN Routine 09/02/2024 7:28 PM CDT Lower respiratory infection (e.g., bronchitis, pneumonia, pneumonitis, pulmonitis) POCT RAPID STREP Routine 09/02/2024 7:21 PM CDT Lower respiratory infection (e.g., bronchitis, pneumonia, pneumonitis, pulmonitis) from Last 3 Months Results * Bordetella pertussis/Bordetella parapertussis PCR Nasopharyngeal (09/02/2024 7:48 PM CDT) B. pertussis DNA Not Detected Not Detected [facility] Comment:Testing performed by : [facility], [address] [place] [address]., [id number] B. parapertussis DNA Not Detected Not Detected [facility] Comment: Interpretive Data: This assay tests for the presence of Bordetella pertussis and Bordetella parapertussis. This test is laboratory developed and its performance characteristics were determined by the performing laboratory in a manner consistent with CLIA requirements. This test has not been cleared or approved by the U.S. Food and Drug Administration. Current Interpretive Data was last revised on 2019. Testing performed by: [facility], [address] [place] [address]., [address] Nasopharyngeal 09/02/2024 7: 48 PM CDT 09/03/2024 6:43 AM CDT us Stephanie Kaplan NP LAB MICROBIOLOGY - GENERAL ORD ERABLES Final Result [facility] [address] Department [place] [address] [facility] * Throat culture Throat (09/02/2024 7:30 PM CDT) Report Final Report: No growth of pathogens. Comment:Testing performed by : [facility], [address] [place]., [address] Throat 09/02/2024 7:30 PM CDT 09/03/2024 6:39 AM CDT Narrative [facility] - 09/04/2024 5:25 AM CDT Testing performed by [facility] Microbiology Laboratory ([phone]). Stephanie Kaplan NP LAB MICROBIOLOGY - GENERAL ORD ERABLES Final Result [facility] [address] Department [place] [address] * POC Influenza A/B, COVID-19 antigen (09/02/2024 7:28 PM CDT) Influenza A Ag, POC Negative Negative [facility] Influenza B Ag, POC Negative Negative [facility] COVID-19 Ag POC Presumptive Negative Presumptive Negative, Invalid [facility] Nasal 09/02/2024 7:28 PM CDT Stephanie Kaplan ELECTRONIC CALIBRATION TECHNICIAN POINT OF CARE TEST ORDERABLES Final Result Performing Organization Address [facility] Co de Phone Number [facility] [address] [place] [address] * POCT rapid strep A (09/02/2024 7:21 PM CDT) Rapid Strep A, POC Negative Negative Swab 09/02/2024 7:21 PM CDT Stephanie Kaplan NP POINT OF CARE TEST ORDERABLES Final Result from Last 3 Months Insurance [facility] PL[facility] Care Teams Base Remover Relationship Specialty Start Date End Date Tamiko Soni PA PCP - General 08/25/20
--- OUTSIDE RECORDS SUMMARY | 2024-09-14 16:08 | XMS_ITS | Clinical Summary ---
Author Organization [facility] Address [address] [place] [address] Phone Care Team Providers Care Cathode Maker Name Role Phone Unavailable Primary Care Provider Unavailabl e Allergies No known active allergies Medications No known medications Active Problems No known active problems Social History Tobacco Use Types Packs/Day Years Used Date Smoking Tobacco: Never Assessed Comments Unknown Sex and Gender Information Value Date Recorded Sex Assigned at Not on file Legal Sex Female 7:54 PM CDT Gender Identity Not on file Sexual Orientation Not on file Plan of Treatment Health Maintenance Due Date Last Done Comments Hepatitis C Virus (HCV) Screening 1987 TdaP Immunization 1987 Hepatitis B Immunization (1 of 3 - 19+ 3-dose series) 09/08/2006 Influenza Immunization (#1) 2023 04/10/2016 SARS-COV-2 Immunization ( season) 2023 Respiratory Syncytial Virus (RSV) Immunization (Adult) (1 - 1-dose 75+ series) 09/08/2062 Meningococcal Immunization (ACWY) Aged Out No longer eligible based on patient's age to complete this topic Pneumococcal Immunization Combined Aged Out No longer eligible based on patient's age to complete this topic Rotavirus Immunization Aged Out No lo nger eligible based on patient's age to complete this topic
--- OUTSIDE RECORDS SUMMARY | 2024-09-14 16:08 | XMS_ITS | Referral Summary ---
Author Organization [facility] Address [address] [place] [address] Care Team Providers Care Steel Fitter Name Role Phone Tamiko Soni Primary Care Pr ovider Encounters Date Type Department Care Team Description 09/03/2024 Results Follow-Up [facility] at [address] [address] Stephanie Kaplan NP Bordetella pertussis/Bordetella parapertussis PCR Nasopharyngeal, Throat culture Throat 09/02/2024 11:59 PM CDT Hospital Encounter [facility] Emergency Department [address] [place] [address] Discharge Disposition: Discharge to home or self care 09/02/2024 7:30 PM CDT - 09/02/2024 11:59 PM CDT Hospital Encounter [address] [address] Lower respiratory infection (e.g., bronchitis, pneumonia, pneumonitis, pulmonitis) Discharge Disposition: Discharge to home or self care 09/02/2024 7:00 PM CDT Office Visit [facility] at [address] [address] Stephanie Kaplan NP Lower respiratory infection (e.g., bronchitis, pneumonia, pneumonitis, pulmonitis) (Primary Dx) from Last 3 Months Allergies Active Allergy Reactions Criticality Noted Date [...] (12/02/2023): Unspecified abdominal pain;Recorded Elsewhere: No Location: [facility] Source: EHR Chronic: N Practice ID: [id number] Billable Time: 02:15:00 PM Nausea 03/02/2019 Overview (12/02/2023): Nausea w/o vomiting;Recorded Elsewhere: No Location: [facility] Source: EHR Chronic: N Practice ID: [id number] Billable Time: 02:15:00 PM Pelvic and perineal pain 11/01/2018 Overview (12/02/2023): Pelvic pain;Recorded Elsewhere: No Location: [facility] Source: EHR Chronic: N Practice ID: [id number] Billable Time: 01:00:00 PM Acute vaginitis 10/01/2017 Overview (12/02/2023): Acute vaginitis;Recorded Elsewhere: No Location: [facility] Source: EHR Chronic: N Practice ID: [id number] Billable Time: 01:00:00 PM Abnormal uterine bleeding 05/26/2017 Overview (12/02/2023): Other specified abnormal uterine and vaginal bleeding;Recorded Elsewhere: No Location: [facility] Source: EHR Chronic: N Practice ID: [id number] Billable Time: 01:00:00 PM Reduced libido 03/31/2017 Overview (12/02/2023): Decreased libido;Recorded Elsewhere: No Location: [facility] Source: EHR Chronic: N Practice ID: [id number] Billable Time: 11:00:00 AM Dysuria 09/16/2016 Overview (12/02/2023): Dysuria;Recorded Elsewhere: No Location: [facility] Source: EHR Chronic: N Practice ID: [id number] [...] amenorrhea;Practice ID: 0001 Amenorrhea;Recorded Elsewhere: No Location: [facility] Source: EHR Chronic: N Practice ID: [id number] Billable Time: 08:30:00 AM Obesity 08/31/2014 Overview (12/02/2023): Obesity;Recorded Elsewhere: No Location: [facility] Source: EHR Chronic: N Practice ID: [id number] Billable Time: 09:30:00 AM Alopecia 10/13/2013 Overview (12/02/2023): Alopecia, unspecified;Recorded Elsewhere: No Location: [facility] Source: EHR Chronic: N Practice ID: [id number] Billable Time: 10:30:00 AM Anxiety 10/13/2013 Overview (12/02/2023): Anxiety;Recorded Elsewhere: No Location: [facility] Source: EHR Chronic: N Practice ID: [id number] Billable Time: 10:30:00 AM Irregular periods 10/13/2013 Overview (12/02/2023): Irregular menstrual cycle;Recorded Elsewhere: No Location: [facility] Source: EHR Chronic: N Practice ID: [id number] Billable Time: 10:00:00 AM Adjustment disorder with depressed mood 07/11/19 14 Overview (12/02/2023): Adjustment disorder with depressed mood;Recorded Elsewhere: No Location: [facility] Source: EHR Chronic: Y Practice ID: [id number] Billable Time: 10:00:00 AM Failed medical induction of labor 06/07/2013 Overview (12/02/2023): Failed medical or unspecified induction of labor, antepartum;Practice ID: 0001 Right upper quadrant pain 05/18/2013 Overview (12/02/2023): Abdominal pain, right upper quadrant;Recorded Elsewhere: No Location: [facility] Source: EHR Chronic: N Practice ID: [id number] Billable Time: 03:15:00 PM Intrauterine growth restrict ion (IUGR) affecting care of mother 03/19/2013 Overview (12/02/2023): Poor growth, affecting management of mother, antepartum condition or complication;Recorded Elsewhere: No Location: [facility] Source: EHR Chronic: N Practice ID: [id number] Billable Time: 02:00:00 PM Congenital malformation 01/16/2013 Overview (12/02/2023): screening for malformation using ultrasonics;Recorded Elsewhere: No Location: [facility] Source: EHR Chronic: N Practice ID: [id number] Billable Time: 09:30:00 AM Uterine size-date discrepancy 10/31/2012 Overview (12/02/2023): UTERINE SIZE HECTOR-ANTEPAR;Recorded Elsewhere: No Location: [facility] Source: EHR Chronic: N Practice ID: [id number] Billable Time: 03:45:00 PM Depressive disorder 01/05/2011 Overview (12/02/2023): Depression;Recorded Elsewhere: No Location: [facility] Source: EHR Chronic: N Practice ID: [id number] Billable Time: 10:30:00 AM Generalized anxiety disorder 01/05/2011 Overview (12/02/2023): Generalized anxiety disorder;Recorded Elsewhere: No Location: [facility] Source: EHR Chronic: N Practice ID: [id number] Billable Time: 10:30:00 AM Immunizations Immunization Administration Dates Next Due Influenza, Quadrivalent, Spl it, Preservative Free, Intramuscular 04/10/2016 Rho (D) Immune Globulin, IV or IM 09/08/2016 Social History Tobacco Use Types Packs/Day Years Used Date Smoking Tobacco: Never Cigarettes Smokeless Tobacco: Never Tobacco Cessation:Counseling Given: Not Answered Alcohol Use Standard Drinks/Week Comments Yes 0 (1 standard drink = 0.6 oz pur e alcohol) socially Comments No Sex and Gender Information Value Date Recorded Sex Assigned at Not on file 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 pertussis DNA Not Detected Not Detected [facility] Comment:Testing performed by : [facility], [address] [place]., [address] B. parapertussis DNA Not Detected Not Detected [...] last revised on 2019. Testing performed by: [facility], [address] [place]., [address] Nasopharyngeal 09/02/2024 7: 48 PM CDT 09/03/2024 6:43 AM CDT Stephanie Kaplan NP LAB MICROBIOLOGY - GENERAL ORD ERABLES Final Result [facility] [address] [place] [address] [facility] * Throat culture Throat (09/02/2024 7:30 PM CDT) Pathologist [facility] Report Final Report: No growth of pathogens. Comment:Testing performed by : [facility], [address] [place] [address]., [address] Throat 09/02/2024 7:30 PM CDT 09/03/2024 6:39 AM CDT Narrative [facility] - 09/04/2024 5:25 AM CDT Testing performed by [facility] Microbiology Laboratory ([phone]). Stephanie Kaplan NP LAB MICROBIOLOGY - GENERAL ORD ERABLES Final Result Performing Organization Address City/[facility]/ZIP Co de Phone Number [facility] [address] [place] [address] * POC Influenza A/B, COVID-19 antigen (09/02/2024 7:28 PM CDT) Influenza A Ag, POC Negative Negative [facility] Influenza B Ag, POC Negative Negative [facility] COVID-19 Ag POC Presumptive Negative Presumptive Negative, Invalid [facility] Nasal 09/02/2024 7:28 PM CDT Stephanie Kaplan NP POINT OF CARE TEST ORDERABLES Final Result Performing Organization Address City/State/[facility] Co de Phone Number [facility] [address] [place] [address], [facility] * POCT rapid strep A (09/02/2024 7:21 PM CDT) Rapid Strep A, POC Negative Negative Swab 09/02/2024 7:21 PM CDT Stephanie Kaplan NP POINT OF CARE TEST ORDERABLES Final Result from Last 3 Months Insurance [facility] [facility] PL[employer] Care Teams Steel Fitter Relationship Specialty Start Date End Date Tamiko Soni PA PCP - General 08/25/20
--- OUTSIDE RECORDS SUMMARY | 2024-09-14 16:08 | XMS_ITS | Encounter Summary ---
Author Organization [facility] Healthcare Address [address] [place] [address] Care Team Providers Care Blunger Machine Operator Name Role Phone Tamiko Soni Primary Care Pr ovider Encounter Details Date Type Department Care Team (Latest Contact Info) Description 09/03/2024 Results Follow-Up [facility] at [address] [address] Stephanie Kaplan NP [address] [place] [address] [address] [place], [place] [id number] Bordetella pertussis/Bordetella parapertussis PCR Nasopharyngeal, Throat culture Throat Social History Tobacco Use Types Packs/Day Years Used Date Smoking Tobacco: Never Cigarettes Smokeless Tobacco: Never Alcohol Use Standard Drinks/Week Comments Yes 0 (1 standard drink = 0.6 oz pur e alcohol) socially Comments No Sex and Gender Information Value Date Recorded Sex Assigned at Not on file 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
--- OUTSIDE RECORDS SUMMARY | 2024-09-14 16:09 | XMS_ITS | Continuity of Care Document ---
Author Organization [facility] Address [address] [facility] [place] [address] [place] [address] Phone Care Team Providers Care Dry Kiln Loader Name Role Phone Raul Haji MD Unavailable Unavailable Allergies, Adverse Reactions, Alerts Substance Reaction Status Criticality Sulfa (Sulfonamide Antibiotics) Active No Information Medications Medication Instructions Dosage Effective Dates (start - stop) Status Comments phentermine 37.5 mg tablet take 1 tablet by oral route every day before breakfast 37.5 MG - Active NuvaRing 0.12 mg -0.015 mg/24 hr vaginal insert 1 vaginal ring by vaginal route every month leave in place for 3 weeks, remove for 1 week 1.00 vaginal ring - Active Procedures Procedure Date OFFICE/OUTPATIENT VISIT, EST OFFICE/OUTPATIENT VISIT, EST PREV VISIT, NEW, AGE 18-39 Advance Directives Directive Yes / No Effective Date File Name No Information Encounters Encounter Description Practice Location Reason(s) For Visit Diagnoses Date Provider Providers Copied on Encounter [facility], [address], [place], [id number], tel:[phone] [facility] No Information 8 Adithya Carter. [address], [place], [place], [address] , [place]. tel:[phone] OFFICE/OUTPA TIENT VISIT, EST [facility], [address], [place], [place], [address], [place] tel:[phone] [facility] Medicine weight1 (chief complaint) hematuria1 (chief complaint) HematuriaAbnormal weight loss 8 Adithya Carter. [address], [place], [place], [address] , [place]. tel:[phone] Referring Provider: Beny Higuera [address], [place], [place], [address]. tel:[phone] OFFICE/OUTPA TIENT VISIT, EST [facility], [address], [place], [place], [address], [place] tel:[phone] [facility] hematuria1 (chief complaint) HLP (chief complaint) weight gain1 (chief complaint) URI1 (chief complaint) Abnormal weight gainHematuriaHyperl ipidemiaAcute upper respiratory infection, unspecified 8 Adithya Carter. [address], [place], [place], [address] , [place]. tel:[phone] Referring Provider: Beny Higuera [address], [place], [place], [address]. tel:[phone] PREV VISIT, NEW, AGE 18-39 [facility], [address], [place], [place], [address], [place] tel:[phone] [facility] PHysical (chief complaint) Encntr for general adult medical exam w/o abnormal findings 8 Adithya Carter. [address], [place], [place], [address] , [place]. [phone] Referring Provider: Beny Higuera [address], [place], [place], [address]. tel:[phone] Family History Family Member Type Diagnosis Age At Onset Father Problem (finding) Alive and well Brother Problem (finding) Alive and well Mother Problem (finding) Obesity Payers Payer name Insurance type Covered alliance party ID Authoriza tion(s) No Information Social History Type Description Quantity Date Captured Comments Sex Female Smoking Status No Information Chief Complaint And Reason For Visit No Information Plan Of Treatment Date Type Action Status Goal Special diet education compl eted Goal Special diet education compl eted Goal Special diet education compl eted History Of Present Illness Encounter Date Complaint History Of Prese nt Illness weight1 pt has been taki ng phentermine for the past 4 weeks. Pt denies any dry mouth or any chest pain headache or palpitation Pt lost 10 pounds with phentermine. Pt wants to continue on phentermine. hematuria1 Pt denies any UT i symptoms Pt has not done repeat UA yet hematuria1 Pt has mild rolo turia. Pt denies any UTI symptoms. PT did lab two days before her period HLP Pt has mild HLP. Her HDL is high also. Pt does not eat poorly per patient weight gain1 Pt notices 4-5 p ounds weight gain during last several months Pt tries to do cardio exercise 3-4 per week. Pt denies any chest pain or headache URI1 Pt c/o dry cough , hoarseness for 1-2 days. pt denies any sore throat, sinus congestion, fever, headache, GI issue. Pt denies any sick contact. Pt notices some cold sweat. Pt denies any dysphagia PHysical Pt needs annual physical. pt feels overall fine. Pt state that she feels slightly more fatigue lately. Pt denies any sob or chest pain. Pt denies any insomnia Pt denies any snoring or any trouble with breathing at night Pt denies any morning fatigue. Pt denies any chest pain or sob. Pt is on nuvaring and she has period monthly but not heavy at all. Pt wants to establish care. pt has gained 5 pounds during last month for unknown reason. Pt does not eat poorly Pt tries to exercise 2-3 times per week in GYM with weight lifting and cardio. Pt denies any other complaints Instructions Date Instruction Additional Infor vaughnion Special diet education Related t o Body mass index (BMI) 25.0-25.9, adult Weight management Related to Abn ormal weight gain Increase physical activity Relat ed to Abnormal weight gain Special diet education Related t o Body mass index (BMI) 27.0-27.9, adult Special diet education Related t o Body mass index (BMI) 27.0-27.9, adult Increase activity. Related to En cntr for general adult medical exam w/o abnormal findings Perform monthly self breast examinations. Related to Encntr for general adult medical exam w/o abnormal findings Assessments Type Assessment Date No Information
[2024-09-14 16:43] VITALS: BP 130/75; PULSE 92; RESP 16; TEMP 36.6; O2SAT 100
--- NOTE | 2024-09-14 17:07 | ED.WOUNDLAC ---
HPI - Wound/Laceration General Chief Complaint: Wound/Laceration <JOSE ALFREDO Sebastian Last Filed: 09/14/24 17:09> Stated Complaint: Lacerations to left 3/4th fingers-hedge trimmers <JOSE ALFREDO Sebastian Last Filed: 09/14/24 17:09> Time Seen by Provider: 09/14/24 17:07 <JOSE ALFREDO Sebastian Last Filed: 09/14/24 17:09> Focused HPI: Patient is a 39 y/o female who presents the ED with report of lacerations to her 4th digit of her left hand. Patient reports she was using a padded products inspector trimmer when she sustained the lacerations. Reports she continued working in the yard, but then prompted here for further evaluation. Reports some tingling to her fingers. Took tylenol prior to arrival. No other injuries. Tetanus is unknown. GENERAL: Well-appearing, well-nourished, and in no acute distress. HEAD: Normocephalic, atraumatic. CHEST: Clear to auscultation. ?No respiratory distress. HEART: Regular rate and rhythm.? SKIN: Small flap laceration to L 3rd digit finger pad, no active bleeding. Smaller more superficial lacerations to L 4th digit finger pad. Cap refill intact NEURO: ?Alert and oriented x3. Patient screened in triage and initial orders placed.? ?Additional care and disposition to be based upon?diagnostic testing and treatment. <JOSE ALFREDO Sebastian Last Filed: 09/14/24 17:09> Source: patient <JOSE ALFREDO Sebastian Last Filed: 09/14/24 17:09> Mode of arrival: ambulatory <JOSE ALFREDO Sebastian Last Filed: 09/14/24 17:09> Limitations: no limitations <JOSE ALFREDO Sebastian Last Filed: 09/14/24 17:09> Related Data Home Medications: Home Medications ?Medication ?Instructions ?Recorded ?Confirmed ?Last Taken ?Type bupropion HCl 300 mg 24 hr tablet, 300 mg PO QAM 07/31/20 10/11/20 10/10/20 History extended release (Wellbutrin XL) etonogestrel 0.12 mg-ethinyl 1 vag ring vaginal ONCE 07/31/20 10/02/20 10/02/20 History estradiol 0.015 mg/24 hr vaginal ring (NuvaRing) acetaminophen 325 mg tablet 325 mg PO ONCE PRN Pain (Scale 10/02/20 10/11/20 Unknown History (Tylenol) Score 1-3) <JOSE ALFREDO Sebastian Last Filed: 09/14/24 17:09> Allergies/Adverse Reactions: Allergies Allergy/AdvReac Type Severity Reaction Status Date / Time Sulfa (Sulfonamide Allergy Intermediate rash and Verified 09/14/24 16:06 Antibiotics) inflammation <JOSE ALFREDO Sebastian Last Filed: 09/14/24 17:09> Review of Systems Review of Systems: All systems reviewed & are unremarkable except as noted in HPI and below <JOSE ALFREDO Alcantara Last Filed: 09/14/24 19:24> PMFSH Past Medical History Medical History: Medical History Depression <JOSE ALFREDO Sebastian Last Filed: 09/14/24 17:09> Surgical History Surgical History: Surgical History History of <JOSE ALFREDO Sebastian Last Filed: 09/14/24 17:09> Social History Social History: Social History Smoking status: Never smoker Second hand tobacco smoke exposure: No Alcohol intake: current Alcohol use details: social- 2 night a week Substance use: never Substance use type: does not use Living arrangements: with family Gender identity (if verbalized by the patient): Female Spiritual care concerns: No <JOSE ALFREDO Sebastian Last Filed: 09/14/24 17:09> Exam Narrative: GENERAL: Well-appearing, well-nourished, and in no acute distress. HEAD: Normocephalic, atraumatic. EYES: EOMI. EXTREMITIES: Normal range of motion. No edema. Left 4th finger with small, superficial lacerations. Left third finger with 1.5cm flap laceration present SKIN: Warm, dry, no rash. NEURO: No focal deficits. Alert and oriented x3. PSYCH: Normal mood and affect <JOSE ALFREDO Alcantara Last Filed: 09/14/24 19:24> Course Course Emergency Course: Patient educated on further wound care <JOSE ALFREDO Alcantara Last Filed: 09/14/24 19:24> Vital Signs Vital signs: Vital Signs Temperature 97.9 F 09/14/24 16:43 Pulse Rate 92 09/14/24 16:43 Respiratory Rate 16 09/14/24 16:43 Blood Pressure 130/75 09/14/24 16:43 Pulse Oximetry 100 09/14/24 16:43 Temperature 97.9 F 09/14/24 16:43 Pulse Rate 92 09/14/24 16:43 Respiratory Rate 16 09/14/24 16:43 Blood Pressure 130/75 09/14/24 16:43 Pulse Oximetry 100 09/14/24 16:43 <JOSE ALFREDO Sebastian Last Filed: 09/14/24 17:09> Vital Signs Temperature 97.9 F 09/14/24 16:43 Pulse Rate 92 09/14/24 16:43 Respiratory Rate 16 09/14/24 16:43 Blood Pressure 130/75 09/14/24 16:43 Pulse Oximetry 100 09/14/24 16:43 Temperature 97.9 F 09/14/24 16:43 Pulse Rate 92 09/14/24 16:43 Respiratory Rate 16 09/14/24 16:43 Blood Pressure 130/75 09/14/24 16:43 Pulse Oximetry 100 09/14/24 16:43 <JOSE ALFREDO Alcantara Last Filed: 09/14/24 19:24> Procedures Laceration Laceration 1: Date: 09/14/24 <JOSE ALFREDO Alcantara Last Filed: 09/14/24 19:24> Time: 19:23 <JOSE ALFREDO Alcantara Last Filed: 09/14/24 19:24> Site: hand <JOSE ALFREDO Alcantara Last Filed: 09/14/24 19:24> Side (If applicable): left <JOSE ALFREDO Alcantara Last Filed: 09/14/24 19:24> Size (cm): 1.5 <JOSE ALFREDO Alcantara Last Filed: 09/14/24 19:24> Description: flap <JOSE ALFREDO Alcantara Last Filed: 09/14/24 19:24> Depth: simple, single layer <JOSE ALFREDO Alcantara Last Filed: 09/14/24 19:24> Local Anesthetic: lidocaine 1% <JOSE ALFREDO Alcantara Last Filed: 09/14/24 19:24> Amount of anesthesia used (mL): 2 <JOSE ALFREDO Alcantara Last Filed: 09/14/24 19:24> Pre-repair: wound explored and irrigated <JOSE ALFREDO Alcantara Last Filed: 09/14/24 19:24> ====== Skin Level ======: Skin layer closed with: nylon <JOSE ALFREDO Alcantara Last Filed: 09/14/24 19:24> Size (cm): 4-0 <JOSE ALFREDO Alcantara Last Filed: 09/14/24 19:24> Number of sutures: 3 <JOSE ALFREDO Alcantara Last Filed: 09/14/24 19:24> Technique: simple, interrupted <JOSE ALFREDO Alcantara Last Filed: 09/14/24 19:24> ====== Subcutaneous Layer ======: ====== Muscle Layer ======: ====== Tendon Layer ======: MDM - Wound/Laceration MDM Narrative Medical decision making narrative: MSE by FELTON in triage. <JOSE ALFREDO Sebastian Last Filed: 09/14/24 17:09> MSE by FELTON in triage. Patient presents to the emergency department for laceration of the left 3rd finger sustained just prior to arrival. The patient is neurovascularly intact. Left 3rd finger x-ray without acute osseous abnormalities. Patient's wound was irrigated and closed with sutures. She was updated on tetanus vaccination. She is to follow up with primary provider. She was given warnings to return to the ER <JOSE ALFREDO Alcantara Last Filed: 09/14/24 19:24> Differential Diagnosis Differential diagnosis: Likely laceration, abrasion and avulsion of skin <JOSE ALFREDO Alcantara Last Filed: 09/14/24 19:24> Imaging Data Radiologist's impression: ITS Impressions Finger X-Ray 09/14/24 18:29 IMPRESSION: No acute fracture or dislocation. <JOSE ALFREDO Alcantara Last Filed: 09/14/24 19:24> Critical Care Time Critical Care Time Critical Care Time: No <JOSE ALFREDO Alcantara Last Filed: 09/14/24 19:24> Discharge Plan Discharge Clinical Impression: Laceration <JOSE ALFREDO Sebastian Last Filed: 09/14/24 17:09> Patient Disposition: Home <JOSE ALFREDO Sebastian Last Filed: 09/14/24 17:09> Condition: Stable <JOSE ALFREDO Sebastian Last Filed: 09/14/24 17:09> Instructions: Care For Your Stitches (ED), Laceration (ED) <JOSE ALFREDO Sebastian Last Filed: 09/14/24 17:09> Additional Instructions: Return to the emergency department if you experience fever, redness or swelling of your wound, abnormal drainage from your wound, or any other symptoms that are concerning to you. Apply antibiotic ointment daily. Do not soak the wound. Clean with mild soap and water daily Follow-up with your primary care doctor for suture removal in 10-14 days. <JOSE ALFREDO Sebastian Last Filed: 09/14/24 17:09> Patient Language: Mongolian <JOSE ALFREDO Sebastian Last Filed: 09/14/24 17:09> Prescriptions: No Action bupropion HCl [Wellbutrin XL] 300 mg tablet extended release 24 hr 300 mg PO QAM etonogestrel-ethinyl estradiol [NuvaRing] 0.12-0.015 mg/24 hr ring 1 vag ring vaginal ONCE acetaminophen [Tylenol] 325 mg Tablet 325 mg PO ONCE PRN (Reason: Pain (Scale Score 1-3)) <Zuleyma Sanford PA-C - Last Filed: 09/14/24 17:09> Follow-up/Referrals: Zachariah,JOSE ALFREDO Morrison [Primary Care Provider] - 2 Weeks <Zuleyma Sanford PA-C - Last Filed: 09/14/24 17:09>
[2024-09-14] MEDS: TETANUS,DIPHTHERIA,AC PERTUSSIS ADULT (0.5 ML) BOOSTRIX IM (18:02)
[2024-09-14] MEDS: IBUPROFEN 600 MG TABLET PO (18:02)
--- OUTSIDE RECORDS SUMMARY | 2024-09-14 18:51 | XMS_ITS | Clinical Summary ---
Author Organization [facility] Address [address] [place] [address] Care Team Providers Care Diesel Mechanic Name Role Phone Tamiko Soni Primary Care [...] (12/02/2023): Unspecified abdominal pain;Recorded Elsewhere: No Location: [facility] Source: EHR Chronic: N Practice ID: [id number] Billable Time: 02:15:00 PM Nausea 03/02/2019 Overview (12/02/2023): Nausea w/o vomiting;Recorded Elsewhere: No Location: [facility] Source: EHR Chronic: N Practice ID: [id number] Billable Time: 02:15:00 PM Pelvic and perineal pain 11/01/2018 Overview (12/02/2023): Pelvic pain;Recorded Elsewhere: No Location: [facility] Source: EHR Chronic: N Practice ID: [id number] Billable Time: 01:00:00 PM Acute vaginitis 10/01/2017 Overview (12/02/2023): Acute vaginitis;Recorded Elsewhere: No Location: [facility] Source: EHR Chronic: N Practice ID: [id number] Billable Time: 01:00:00 PM Abnormal uterine bleeding 05/26/2017 Overview (12/02/2023): Other specified abnormal uterine and vaginal bleeding;Recorded Elsewhere: No Location: [facility] Source: EHR Chronic: N Practice ID: [id number] Billable Time: 01:00:00 PM Reduced libido 03/31/2017 Overview (12/02/2023): Decreased libido;Recorded Elsewhere: No Location: [facility] Source: EHR Chronic: N Practice ID: [id number] Billable Time: 11:00:00 AM Dysuria 09/16/2016 Overview (12/02/2023): Dysuria;Recorded Elsewhere: No Location: [facility] Source: EHR Chronic: N Practice ID: [id number] [...] amenorrhea;Practice ID: 0001 Amenorrhea;Recorded Elsewhere: No Location: [facility] Source: EHR Chronic: N Practice ID: [id number] Billable Time: 08:30:00 AM Obesity 08/31/2014 Overview (12/02/2023): Obesity;Recorded Elsewhere: No Location: [facility] Source: EHR Chronic: N Practice ID: [id number] Billable Time: 09:30:00 AM Alopecia 10/13/2013 Overview (12/02/2023): Alopecia, unspecified;Recorded Elsewhere: No Location: [facility] Source: EHR Chronic: N Practice ID: [id number] Billable Time: 10:30:00 AM Anxiety 10/13/2013 Overview (12/02/2023): Anxiety;Recorded Elsewhere: No Location: [facility] Source: EHR Chronic: N Practice ID: [id number] Billable Time: 10:30:00 AM Irregular periods 10/13/2013 Overview (12/02/2023): Irregular menstrual cycle;Recorded Elsewhere: No Location: [facility] Source: EHR Chronic: N Practice ID: [id number] Billable Time: 10:00:00 AM Adjustment disorder with depressed mood 07/11/19 14 Overview (12/02/2023): Adjustment disorder with depressed mood;Recorded Elsewhere: No Location: [facility] Source: EHR Chronic: Y Practice ID: [id number] Billable Time: 10:00:00 AM Failed medical induction of labor 06/07/2013 Overview (12/02/2023): Failed medical or unspecified induction of labor, antepartum;Practice ID: 0001 Right upper quadrant pain 05/18/2013 Overview (12/02/2023): Abdominal pain, right upper quadrant;Recorded Elsewhere: No Location: [facility] Source: EHR Chronic: N Practice ID: [id number] Billable Time: 03:15:00 PM Intrauterine growth restrict ion (IUGR) affecting care of mother 03/19/2013 Overview (12/02/2023): Poor growth, affecting management of mother, antepartum condition or complication;Recorded Elsewhere: No Location: [facility] Source: EHR Chronic: N Practice ID: [id number] Billable Time: 02:00:00 PM Congenital malformation 01/16/2013 Overview (12/02/2023): screening for malformation using ultrasonics;Recorded Elsewhere: No Location: [facility] Source: EHR Chronic: N Practice ID: [id number] Billable Time: 09:30:00 AM Uterine size-date discrepancy 10/31/2012 Overview (12/02/2023): UTERINE SIZE HECTOR-ANTEPAR;Recorded Elsewhere: No Location: [facility] Source: EHR Chronic: N Practice ID: [id number] Billable Time: 03:45:00 PM Depressive disorder 01/05/2011 Overview (12/02/2023): Depression;Recorded Elsewhere: No Location: [facility] Source: EHR Chronic: N Practice ID: [id number] Billable Time: 10:30:00 AM Generalized anxiety disorder 01/05/2011 Overview (12/02/2023): Generalized anxiety disorder;Recorded Elsewhere: No Location: [facility] Source: EHR Chronic: N Practice ID: [id number] Billable Time: 10:30:00 AM Encounters Date Type Department Care Team Description 09/03/2024 Results Follow-Up [facility] at [address] [address] Stephanie Kaplan NP Bordetella pertussis/Bordetella parapertussis PCR Nasopharyngeal, Throat culture Throat 09/02/2024 11:59 PM CDT Hospital Encounter [facility] Emergency Department [address] [place] [address] Discharge Disposition: Discharge to home or self care 09/02/2024 7:30 PM CDT - 09/02/2024 11:59 PM CDT Hospital Encounter [address] [address] Lower respiratory infection (e.g., bronchitis, pneumonia, pneumonitis, pulmonitis) Discharge Disposition: Discharge to home or self care 09/02/2024 7:00 PM CDT Office Visit [facility] at [address] [address] Stephanie Kaplan NP Lower respiratory infection (e.g., [...] on file Legal Sex Female 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 pertussis DNA Not Detected Not Detected [facility] Comment:Testing performed by : [facility], [address] [place] [address]., [id number] B. parapertussis DNA Not Detected Not Detected [...] last revised on 2019. Testing performed by: [facility], [address] [place] [address]., [id number] Nasopharyngeal 09/02/2024 7: 48 PM CDT 09/03/2024 6:43 AM CDT us Stephanie Kaplan NP LAB MICROBIOLOGY - GENERAL ORD ERABLES Final Result [facility] [address] [address] Department [place] [address] [facility] * Throat culture Throat (09/02/2024 7:30 PM CDT) Report Final Report: No growth of pathogens. Comment:Testing performed by : [facility], [address] [place]., [address] Throat 09/02/2024 7:30 PM CDT 09/03/2024 6:39 AM CDT Narrative [facility] - 09/04/2024 5:25 AM CDT Testing performed by [facility] Laboratory ([phone]). Stephanie Kaplan NP LAB MICROBIOLOGY - GENERAL ORD ERABLES Final Result [facility] [address] [address] Department [place] [address] * POC Influenza A/B, COVID-19 antigen (09/02/2024 7:28 PM CDT) Influenza A Ag, POC Negative Negative [facility] Influenza B Ag, POC Negative Negative [facility] COVID-19 Ag POC Presumptive Negative Presumptive Negative, Invalid [facility] Nasal 09/02/2024 7:28 PM CDT Stephanie Kaplan MATERIAL PROCESSOR POINT OF CARE TEST ORDERABLES Final Result Performing Organization Address [facility] Co de Phone Number [facility] [address] [place] [address] * POCT rapid strep A (09/02/2024 7:21 PM CDT) Rapid Strep A, POC Negative Negative Swab 09/02/2024 7:21 PM CDT Stephanie Kaplan NP POINT OF CARE TEST ORDERABLES Final Result from Last 3 Months Insurance [facility] CHO[facility] PLUS [facility] PLUS [facility] CHOICE PLUS Care Teams Diesel Mechanic Relationship Specialty Start Date End Date Tamiko Soni PA PCP - General 08/25/20
--- OUTSIDE RECORDS SUMMARY | 2024-09-14 18:51 | XMS_ITS | Continuity of Care Document ---
Author Organization [facility] Address [address] [facility] [place] [address] [place] [address] Phone Care Team Providers Care Gas Regulator Repairer Name Role Phone Raul Haji MD Unavailable [...] Diagnoses Date Provider Providers Copied on Encounter [facility], [address] [place], [id number], tel:[phone] [facility] No Information 8 Adithya Carter. [address], [place], [place], [id number] , [place]. tel:[phone] OFFICE/OUTPA TIENT VISIT, EST [facility], [address], [place], [place], [id number], [place] tel:[phone] [facility] Medicine weight1 (chief complaint) hematuria1 (chief complaint) HematuriaAbnormal weight loss 8 Adithya Carter. [address], [address], [place], [place], [id number] , [place]. tel:[phone] Referring Provider: Beny Higuera [address], [place], [place], [id number]. tel:[phone] OFFICE/OUTPA TIENT VISIT, EST [facility], [address], [place], [place], [address], [place] tel:[phone] [facility] hematuria1 (chief complaint) HLP (chief complaint) weight gain1 (chief complaint) URI1 (chief complaint) Abnormal weight gainHematuriaHyperl ipidemiaAcute upper respiratory infection, unspecified 8 Adithya Carter. [address], [place], [place], [id number] , [place]. tel:[phone] Referring Provider: Beny Higuera [address], [place], [place], [id number]. tel:[phone] PREV VISIT, NEW, AGE 18-39 [facility], [address], [place], [place], [id number], [place] tel:[phone] [facility] PHysical (chief complaint) Encntr for general adult medical exam w/o abnormal findings 8 Adithya Carter. [address], [address], [place], [place], [address] , [place]. [phone] Referring Provider: Beny Higuera [address], [place], [place], [id number]. tel:[phone] Family History Family Member Type Diagnosis Age At Onset Father Problem (finding) Alive and well Brother Problem (finding) Alive and well Mother Problem (finding) Obesity Payers Payer name Insurance type Covered republican ID Authoriza tion(s) No Information Social History [...] other complaints Instructions Date Instruction Additional Infor mation Special diet education Related t o Body mass index (BMI) 25.0-25.9, adult Special diet education Related t o Body mass index (BMI) 27.0-27.9, adult Increase physical activity Relat ed to Abnormal weight gain Weight management Related to Abn ormal weight gain Perform monthly self breast examinations. Related to Encntr for general adult medical exam w/o abnormal findings Increase activity. Related to En cntr for general adult medical exam w/o abnormal findings Special diet education Related t o Body mass index (BMI) 27.0-27.9, adult Assessments Type Assessment Date No Information
--- OUTSIDE RECORDS SUMMARY | 2024-09-14 18:51 | XMS_ITS | Encounter Summary ---
Author Organization [facility] Healthcare Address [address] [place] [id number] Care Team Providers Care Flight Deck Officer Name Role Phone Tamiko Soni Primary Care Pr ovider Encounter Details Date Type Department Care Team (Latest Contact Info) Description 09/03/2024 Results Follow-Up [facility] at [address] [address] Stephanie Kaplan NP [address] [place] [address] [address] [place], [place] [id number] Bordetella pertussis/Bordetella parapertussis PCR Nasopharyngeal, Throat culture Throat Social History Tobacco Use Types Packs/Day Years Used Date Smoking Tobacco: Never Cigarettes Smokeless Tobacco: Never Alcohol Use Standard Drinks/Week Comments Yes 0 (1 standard drink = 0.6 oz pur e alcohol) socially Comments No Sex and Gender Information Value Date Recorded Sex Assigned at Not on file 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
--- OUTSIDE RECORDS SUMMARY | 2024-09-14 18:51 | XMS_ITS | Clinical Summary ---
Author Organization [facility] Address [address] [place] [place] [address] Phone Care Team Providers Care Photo Mask Inspector Name Role Phone Unavailable Primary Care Provider [...]
--- OUTSIDE RECORDS SUMMARY | 2024-09-14 18:51 | XMS_ITS | Referral Summary ---
Author Organization [facility] Address [address] [place] [address] Care Team Providers Care Wind Tunnel Technician Name Role Phone Tamiko Soni Primary Care Pr ovider Encounters Date Type Department Care Team Description 09/03/2024 Results Follow-Up [facility] at [address] [address] Stephanie Kaplan NP Bordetella pertussis/Bordetella parapertussis PCR Nasopharyngeal, Throat culture Throat 09/02/2024 11:59 PM CDT Hospital Encounter [facility] Emergency Department [address] [place] [address] Discharge Disposition: Discharge to home or self care 09/02/2024 7:30 PM CDT - 09/02/2024 11:59 PM CDT Hospital Encounter [address] [address] Lower respiratory infection (e.g., bronchitis, pneumonia, pneumonitis, pulmonitis) Discharge Disposition: Discharge to home or self care 09/02/2024 7:00 PM CDT Office Visit [facility] at [address] [address] Stephanie Kaplan NP Lower respiratory [...] (12/02/2023): Unspecified abdominal pain;Recorded Elsewhere: No Location: [facility] Source: EHR Chronic: N Practice ID: [id number] Billable Time: 02:15:00 PM Nausea 03/02/2019 Overview (12/02/2023): Nausea w/o vomiting;Recorded Elsewhere: No Location: [facility] Source: EHR Chronic: N Practice ID: [id number] Billable Time: 02:15:00 PM Pelvic and perineal pain 11/01/2018 Overview (12/02/2023): Pelvic pain;Recorded Elsewhere: No Location: [facility] Source: EHR Chronic: N Practice ID: [id number] Billable Time: 01:00:00 PM Acute vaginitis 10/01/2017 Overview (12/02/2023): Acute vaginitis;Recorded Elsewhere: No Location: [facility] Source: EHR Chronic: N Practice ID: [id number] Billable Time: 01:00:00 PM Abnormal uterine bleeding 05/26/2017 Overview (12/02/2023): Other specified abnormal uterine and vaginal bleeding;Recorded Elsewhere: No Location: [facility] Source: EHR Chronic: N Practice ID: [id number] Billable Time: 01:00:00 PM Reduced libido 03/31/2017 Overview (12/02/2023): Decreased libido;Recorded Elsewhere: No Location: [facility] Source: EHR Chronic: N Practice ID: [id number] Billable Time: 11:00:00 AM Dysuria 09/16/2016 Overview (12/02/2023): Dysuria;Recorded Elsewhere: No Location: [facility] Source: EHR Chronic: N Practice ID: [id number] [...] amenorrhea;Practice ID: 0001 Amenorrhea;Recorded Elsewhere: No Location: [facility] Source: EHR Chronic: N Practice ID: [id number] Billable Time: 08:30:00 AM Obesity 08/31/2014 Overview (12/02/2023): Obesity;Recorded Elsewhere: No Location: [facility] Source: EHR Chronic: N Practice ID: [id number] Billable Time: 09:30:00 AM Alopecia 10/13/2013 Overview (12/02/2023): Alopecia, unspecified;Recorded Elsewhere: No Location: [facility] Source: EHR Chronic: N Practice ID: [id number] Billable Time: 10:30:00 AM Anxiety 10/13/2013 Overview (12/02/2023): Anxiety;Recorded Elsewhere: No Location: [facility] Source: EHR Chronic: N Practice ID: [id number] Billable Time: 10:30:00 AM Irregular periods 10/13/2013 Overview (12/02/2023): Irregular menstrual cycle;Recorded Elsewhere: No Location: [facility] Source: EHR Chronic: N Practice ID: [id number] Billable Time: 10:00:00 AM Adjustment disorder with depressed mood 07/11/19 14 Overview (12/02/2023): Adjustment disorder with depressed mood;Recorded Elsewhere: No Location: [facility] Source: EHR Chronic: Y Practice ID: [id number] Billable Time: 10:00:00 AM Failed medical induction of labor 06/07/2013 Overview (12/02/2023): Failed medical or unspecified induction of labor, antepartum;Practice ID: 0001 Right upper quadrant pain 05/18/2013 Overview (12/02/2023): Abdominal pain, right upper quadrant;Recorded Elsewhere: No Location: [facility] Source: EHR Chronic: N Practice ID: [id number] Billable Time: 03:15:00 PM Intrauterine growth restrict ion (IUGR) affecting care of mother 03/19/2013 Overview (12/02/2023): Poor growth, affecting management of mother, antepartum condition or complication;Recorded Elsewhere: No Location: [facility] Source: EHR Chronic: N Practice ID: [id number] Billable Time: 02:00:00 PM Congenital malformation 01/16/2013 Overview (12/02/2023): screening for malformation using ultrasonics;Recorded Elsewhere: No Location: [facility] Source: EHR Chronic: N Practice ID: [id number] Billable Time: 09:30:00 AM Uterine size-date discrepancy 10/31/2012 Overview (12/02/2023): UTERINE SIZE HECTOR-ANTEPAR;Recorded Elsewhere: No Location: [facility] Source: EHR Chronic: N Practice ID: [id number] Billable Time: 03:45:00 PM Depressive disorder 01/05/2011 Overview (12/02/2023): Depression;Recorded Elsewhere: No Location: [facility] Source: EHR Chronic: N Practice ID: [id number] Billable Time: 10:30:00 AM Generalized anxiety disorder 01/05/2011 Overview (12/02/2023): Generalized anxiety disorder;Recorded Elsewhere: No Location: [facility] Source: EHR Chronic: N Practice ID: [id number] [...] on file 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 pertussis DNA Not Detected Not Detected [facility] Comment:Testing performed by : [facility], [address] [place]., [address] B. parapertussis DNA Not Detected Not Detected [facility] Comment: Interpretive Data: This assay tests for the presence of Bordetella pertussis and Bordetella parapertussis. This test is laboratory developed and its performance characteristics were determined by the performing laboratory in a manner consistent with CLIA requirements. This test has not been cleared or approved by the U.S. Food and Drug Administration. Current Interpretive Data was last revised on 2019. Testing performed by: [facility], [address] [place]., [address] Nasopharyngeal 09/02/2024 7: 48 PM CDT 09/03/2024 6:43 AM CDT Stephanie Kaplan NP LAB MICROBIOLOGY - GENERAL ORD ERABLES Final Result [facility] [address] [address] [employer] [place] [address] [facility] * Throat culture Throat (09/02/2024 7:30 PM CDT) Pathologist [facility] Report Final Report: No growth of pathogens. Comment:Testing performed by : [facility], [address] [place] [address]., [address] Throat 09/02/2024 7:30 PM CDT 09/03/2024 6:39 AM CDT Narrative [facility] - 09/04/2024 5:25 AM CDT Testing performed by [facility] Microbiology Laboratory ([phone]). Stephanie Kaplan NP LAB MICROBIOLOGY - GENERAL ORD ERABLES Final Result Performing Organization Address City/[facility]/ZIP Co de Phone Number [facility] [address] [address] [employer] [place] [address] * POC Influenza A/B, COVID-19 antigen (09/02/2024 7:28 PM CDT) Influenza A Ag, POC Negative Negative [facility] Influenza B Ag, POC Negative Negative [facility] COVID-19 Ag POC Presumptive Negative Presumptive Negative, Invalid [facility] Nasal 09/02/2024 7:28 PM CDT Stephanie Kaplan NP POINT OF CARE TEST ORDERABLES Final Result Performing Organization Address City/State/[facility] Co de Phone Number [facility] [address] [place] [address], [facility] * POCT rapid strep A (09/02/2024 7:21 PM CDT) Rapid Strep A, POC Negative Negative Swab 09/02/2024 7:21 PM CDT Stephanie Kaplan NP POINT OF CARE TEST ORDERABLES Final Result from Last 3 Months Insurance [facility] CHOICE PLUS [facility] CHOICE PLUS [facility] CHOICE PLUS Care Teams Wind Tunnel Technician Relationship Specialty Start Date End Date Tamiko Soni PA PCP - General 08/25/20
== END 2024-09-14 19:38 | disposition home or self-care (01) ==
PROVIDERS: Emergency Provider Physician Assistant; PCP Physician Assistant
DX: S61.215A Laceration without foreign body of left ring finger without damage to nail, initial encounter (principal); Z23 Encounter for immunization; W29.3XXA Contact with powered garden and outdoor hand tools and machinery, initial encounter; Y93.H2 Activity, gardening and landscaping
CPT/HCPCS: 12001; 73140; 90471; 90715; 99283; A9270